=== PATIENT | male | born 1960 | race Caucasian/White ===

== ENCOUNTER 2018-01-25 10:21 | Emergency (ER) | payer BC ==
[2018-01-25 10:55] VITALS: BP 112/66
--- NOTE | 2018-01-25 11:36 | UC ---
General HPI - HPI Summary HPI Summary: 57 yo gentleman c/o R knee pain, was on his feet all day, toward the end of the day, his back "went out" (history of back problems). His weight pressed on R leg and turned knee. [place] a "pop" and pain that kept him awake all night. No known hx of R knee pain or injury. No new p/d/w. + swelling R knee. Mr. Ley is followed by pain management, last seen by Dr. Garcia 01/10/18. Rx for radiculopathy, back pain. Receives steroid injections, and takes lyrica and nucynta. - History of Current Complaint Chief Complaint: UCLowerExtremity Stated Complaint: KNEE INJURY Time Seen by Provider: 01/25/18 11:01 Hx Obtained From: Patient Pain Intensity: 10 - Allergy/Home Medications Allergies/Adverse Reactions: Allergies Allergy/AdvReac Type Severity Reaction Status Date / Time Adhesive Tape Allergy Severe Rash And Verified 01/25/18 10:56 Itching bee venom protein (honey bee) Allergy Severe Anaphylatic Verified 01/25/18 10:56 Shock Penicillins Allergy Mild Rash Verified 01/25/18 10:56 pseudoephedrine AdvReac Intermediate heart races Verified 01/25/18 10:56 [From [facility]] PMH/Surg Hx/FS Hx/Imm Hx - Additional Past Medical History Additional PMH: Lumbar radiculopathy, back pain. Previously Healthy: No - see hpi Other History Of: Anticoagulant Therapy - Surgical History Surgical History: Yes Surgery Procedure, Year, and Place: bilat fem-pop Bypass 2012 and 2014. B/L rotator cuff surgery. Left inguinal Hernia surgery 1986. EYES - FOR CROSSED EYED. TONSILECTOMY-. GALLBLADDER SURGERY 01/18/16 - Family History Known Family History: Positive: Hypertension - Social History Alcohol Use: Occasionally Substance Use Type: None Smoking Status (MU): Former Smoker Amount Used/How Often: 1 ppd or more Length of Time of Smoking/Using Tobacco: since age 17 When Did the Patient Quit Smoking/Using Tobacco: JUNE 2017 - Immunization History Most Recent Influenza Vaccination: NOT THIS SEASON Review of Systems Constitutional: Negative Skin: Negative Eyes: Negative ENT: Negative Respiratory: Negative Cardiovascular: Negative Gastrointestinal: Negative Genitourinary: Negative Motor: Other - see hpi Neurovascular: Other - see hpi. No changes from baseline back issues. Musculoskeletal: Arthralgia, Other: - see hpi Neurological: Other - see hpi Psychological: Negative Is Patient Immunocompromised?: No All Other Systems Reviewed And Are Negative: Yes Physical Exam Triage Information Reviewed: Yes Appearance: Well-Nourished - sitting up in chair. conversing easily and appropriately. NAD. Vital Signs: Initial Vital Signs Temp 95.4 F 01/25/18 10:51 Pulse 54 01/25/18 10:51 Resp 18 01/25/18 10:51 BP 112/66 01/25/18 10:51 Pulse Ox 96 01/25/18 10:51 Vital Signs Reviewed: Yes Eye Exam: Normal ENT Exam: Normal Neck exam: Other - no new issues reported. detailed exam not done. Respiratory Exam: Other - no tachypnea, no dyspnea. RR normal. Cardiovascular Exam: Normal - heart rate normal. good general color. Abdominal Exam: Normal - no c/o pain, sitting up. Musculoskeletal Exam: Other - R knee + swelling. + tenderness infrapatella region. Mild crepitus. Also Medial knee. + post knee swelling, mild ( consider bakers cyst? not cord-like). Foot warm to touch. Calves approx equal size. L knee nontender, without swelling. Neurological Exam: Normal - detailed neurologic exam not done. + distal sens LT present. Psychological Exam: Normal - conversing easily and appropriately. Skin Exam: Normal - not hot to touch. No visible or reported rash. Non- diaphoretic Course/Dx - Course Course Of Treatment: Reviewed Xray report with pt. (NAD, see [facility] for detailed report). Suspect internal injury. Consider meniscus. (?). Referral to orthopedic surgery. Questions as posed answered to the best of my ability. I reviewed ISTOP Ref # [id number]. Called pain clinic, Dr. Garcia not in office, Reva Roberts not available. I spoke with RN Rica, pain management. Analgesia ok, pt needs to notify pain clinic. - Differential Dx - Multi-Symptom Provider Diagnoses: Acute R knee injury,internal. Discharge - Discharge Plan Condition: Stable Disposition: HOME Prescriptions: HYDROcodone/ACETAMIN 5-325 MG* [[place] 5-325 TAB*] 1 tab PO Q8H PRN #12 tab MDD 3 PRN Reason: Pain Patient Education Materials: Swollen Knee Joint (ED), Meniscus Tear (ED) Referrals: Bernice Ahmadi PA [Primary Care Provider] - Humble Cruz MD [Medical Doctor] - As Soon As Possible Additional Instructions: I am suspicious of a meniscus tear. However, other internal knee issues could be problems too. Minimize pressure on knee. Follow up with your primary care physician, per routine. Please let your primary care physician know about your condition. Follow up with orthopedic surgeon, in the next week if possible. Seek medical attention for worse or new problems. Call the pain clinic tomorrow to let them know of your treatment plan.
--- NOTE | 2018-01-25 11:40 | RAD ---
Indication: Anterior RIGHT knee pain without proceeding injury. Comparison: None. Technique: RIGHT knee: AP, tunnel, lateral, sunrise views. Report: Negative for joint effusion, fracture, or malalignment. No significant arthropathic change evident. Innumerable vascular clips at the posterior medial distal thigh and knee. Unremarkable soft tissue contours. IMPRESSION: Negative radiographic exam of the RIGHT knee.
== END 2018-01-25 12:38 | disposition home or self-care (01) ==
LOC: UCEAST 10:21
DX: S89.91XA Unspecified injury of right lower leg, initial encounter (principal); X50.1XXA Overexertion from prolonged static or awkward postures, initial encounter; Y93.B1 Activity, exercise machines primarily for muscle strengthening; Y92.9 Unspecified place or not applicable; M54.16 Radiculopathy, lumbar region; Z91.030 Bee allergy status; Z88.0 Allergy status to penicillin; Z88.8 Allergy status to other drugs, medicaments and biological substances; Z91.048 Other nonmedicinal substance allergy status; Z79.01 Long term (current) use of anticoagulants; Z87.891 Personal history of nicotine dependence
CPT/HCPCS: 99213; G0463

== ENCOUNTER 2018-02-14 09:12 | Emergency (ER) | payer BC ==
--- OUTSIDE RECORDS SUMMARY | 2018-02-14 09:47 | XMS REPORT ---
:1960 External Reference #:[id number] [facility] Address [address] [address] Phone [phone] Care Team Providers Name Role Phone Bernice Ahmadi RPA Primary Care Physician Unavailable Payers Type Date Identification Numbers Payment Provider Subscriber Commercial Policy Number: [id number] [facility] Jt Ley PayID: [id number] [address] [place] [address] Problems Date Description Provider Status Onset: 01/26/2018 Low back pain Megan Jesus MD Active Onset: 01/26/2018 Lumbosacral spondylosis without Megan Jesus MD Active myelopathy Onset: 11/16/2017 Chronic obstructive lung disease Bernice Ahmadi RPA Active Onset: 01/21/2011 Cerebrovascular disease Active Onset: 11/10/2012 Carotid artery occlusion Active Onset: 11/10/2012 Pure hypercholesterolemia Active Onset: 11/10/2012 Benign essential hypertension Active Onset: 11/10/2012 Peripheral vascular disease Active Onset: 12/15/2012 Coronary arteriosclerosis Allan Moise MD Active Onset: 06/24/2016 Obstructive sleep apnea syndrome Bernice Ahmadi RPA Active Onset: 06/25/2016 Degenerative joint disease involving Bernice Ahmadi RPA Active multiple joints Onset: 10/22/2016 Diverticulitis Bernice Ahmadi RPA Active Onset: 12/07/2016 Hyperglycemia Bernice Ahmadi RPA Active Onset: 04/22/2017 Gastroesophageal reflux disease Bernice Ahmadi RPA Active Onset: 04/22/2017 Compression fracture Bernice Ahmadi RPA Active Onset: 04/22/2017 Alcoholism Bernice Ahmadi RPA Active Onset: 06/03/2017 Microscopic hematuria Bernice Ahmadi RPA Active Family History Date Family Member(s) Problem(s) Comments Father Diabetes Father Cancer Mother Diabetes Siblings 6 Social History Type Date Description Comments Marital Status Lives With Occupation [employer] 1 day a week Work Status Currently Working ETOH Use Occasionally consumes alcohol Smoking Patient is a former smoker Recreational Drug Use Denies Drug Use Daily Caffeine Consumes on average 3 cups of regular coffee per day Daily Caffeine Consumes on average 16oz of soda per day Exercise Type/Frequency Does not exercise Allergies, Adverse Reactions, Alerts Date Description Reaction Status Severity Comments 04/22/2017 Varenicline Suicidal ideation active 01/26/2018 Penicillin active 09/15/2016 Tape contact allergy active 02/02/2018 Tegaderm active when left on Medications Medication Date Status Form Strength Qnty SIG Indications Ordering Provider Lyrica Active Capsules 75mg 60caps 1 by Armando, 000 mouth Marleni, twice a [employer]- day Nucynta Active Tablets 50mg 60tabs 1 by Gissell Garcia, 000 mouth MD every 6 hours as needed Nadolol Active Tablets 40mg 90tabs 1 by Galdino, 000 mouth Bernice, every day RPA Rosuvastatin Active Tablets 40mg 90tabs take one Barton, Calcium 000 tablet Bernice, daily, RPA use generic Clopidogrel Active Tablets 75mg 1 by Galdino, Bisulfate 000 mouth Bernice, every day RPA Losartan Active Tablets 100-25mg take 1 Unknown Potassium/[place] 000 tablet by chlorothiazide mouth once daily Probiotic Active Capsules 1 by Unknown 000 mouth every day Hydrocodone-Leonel Hx Tablets 5-325mg 1 or 2 Unknown taminophen 000 - tabs by mouth 018 every 6-8 hours as needed for pain Medications Administered in Office Medication Date Status Form Strength Qnty SIG Indications Ordering Provider Celestone 3 mg Administered Injection Grabiel Estrella and 3mg 018 MD Olga Vital Signs Date Vital Result Comment 02/04/2018 Height 69 inches 5'9" Weight 225.00 lb Heart Rate 72 /min BP Systolic Sitting 118 mmHg BP Diastolic Sitting 72 mmHg Respiratory Rate 17 /min Pain Level 3 can go up to level 7 BMI (Body Mass Index) 33.2 kg/m2 02/02/2018 Height 69 inches 5'9" Weight 225.00 lb Heart Rate 78 /min BP Systolic Sitting 132 mmHg BP Diastolic Sitting 72 mmHg Respiratory Rate 16 /min Pain Level 6 BMI (Body Mass Index) 33.2 kg/m2 01/27/2018 Height 69 inches Weight 228.00 lb Heart Rate 50 /min BP Systolic 118 mmHg BP Diastolic 64 mmHg O2 % BldC Oximetry 94 % BMI (Body Mass Index) 33.7 kg/m2 01/26/2018 Height 69 inches 5'9" Weight 218.00 lb Heart Rate 82 /min BP Systolic Sitting 130 mmHg BP Diastolic Sitting 70 mmHg Pain Level 6 BMI (Body Mass Index) 32.2 kg/m2 10/15/2017 Height 69 inches Weight 218.00 lb Heart Rate 60 /min BP Systolic 110 mmHg BP Diastolic 60 mmHg O2 % BldC Oximetry 96 % BMI (Body Mass Index) 32.2 kg/m2 09/16/2017 Height 69 inches Weight 220.50 lb Heart Rate 46 /min BP Systolic 122 mmHg BP Diastolic 68 mmHg Respiratory Rate 22 /min Body Temperature 95.2 F O2 % BldC Oximetry 97 % BMI (Body Mass Index) 32.6 kg/m2 09/07/2017 Height 69 inches Weight 223.00 lb BP Systolic 122 mmHg BP Diastolic 62 mmHg O2 % BldC Oximetry 97 % BMI (Body Mass Index) 32.9 kg/m2 06/03/2017 Height 69 inches Weight 217.00 lb Heart Rate 48 /min BP Systolic 120 mmHg BP Diastolic 78 mmHg Respiratory Rate 18 /min Body Temperature 95.6 F O2 % BldC Oximetry 97 % BMI (Body Mass Index) 32.0 kg/m2 04/22/2017 Height 69 inches Weight 217.00 lb Heart Rate 64 /min BP Systolic 150 mmHg BP Diastolic 84 mmHg BMI (Body Mass Index) 32.0 kg/m2 12/07/2016 Height 69 inches Weight 213.50 lb Heart Rate 58 /min BP Systolic 148 mmHg BP Diastolic 78 mmHg Body Temperature 98.4 F O2 % BldC Oximetry 98 % BMI (Body Mass Index) 31.5 kg/m2 10/22/2016 Height 69 inches Weight 214.38 lb BP Systolic 136 mmHg BP Diastolic 78 mmHg Body Temperature 96.6 F BMI (Body Mass Index) 31.7 kg/m2 07/03/2016 Height 69 inches Weight 206.38 lb BP Systolic 134 mmHg BP Diastolic 74 mmHg BMI (Body Mass Index) 30.5 kg/m2 06/24/2016 Height 69 inches Weight 206.38 lb Heart Rate 66 /min BP Systolic 118 mmHg BP Diastolic 70 mmHg Body Temperature 97.4 F O2 % BldC Oximetry 96 % BMI (Body Mass Index) 30.5 kg/m2 01/22/2016 Height 69 inches Weight 216.50 lb Heart Rate 67 /min BP Systolic 137 mmHg BP Diastolic 85 mmHg Respiratory Rate 18 /min Body Temperature 98.4 F O2 % BldC Oximetry 96 % BMI (Body Mass Index) 32.0 kg/m2 08/08/2015 Weight 208.38 lb Heart Rate 61 /min BP Systolic 166 mmHg BP Diastolic 83 mmHg 01/18/2015 BP Systolic 160 mmHg BP Diastolic 90 mmHg 01/18/2015 Height 69 inches Weight 200.00 lb BP Systolic 160 mmHg BP Diastolic 90 mmHg BMI (Body Mass Index) 29.5 kg/m2 11/22/2013 Height 69 inches Weight 211.00 lb Heart Rate 73 /min BP Systolic 126 mmHg BP Diastolic 80 mmHg Respiratory Rate 16 /min BMI (Body Mass Index) 31.2 kg/m2 12/15/2012 Height 69 inches Weight 208.00 lb Heart Rate 80 /min BP Systolic 120 mmHg BP Diastolic 72 mmHg Respiratory Rate 16 /min BMI (Body Mass Index) 30.7 kg/m2 11/10/2012 Height 69 inches Weight 206.00 lb Heart Rate 60 /min BP Systolic 122 mmHg BP Diastolic 80 mmHg Respiratory Rate 16 /min BMI (Body Mass Index) 30.4 kg/m2 05/12/2012 Height 69 inches Weight 200.00 lb Heart Rate 80 /min BP Systolic 124 mmHg BP Diastolic 78 mmHg Respiratory Rate 18 /min 09/26/2009 Weight 193.00 lb Heart Rate 78 /min Respiratory Rate 16 /min 08/26/2009 Weight 193.00 lb Heart Rate 70 /min Respiratory Rate 16 /min Results Description No Information Procedures Date CPT Code Description Status 02/02/2018 58394 Inject/Drain Joint/Bursa Major Completed 02/24/2011 24739 Color Flow Doppler/Interp & Reprt Completed 02/24/2011 30116 Pulse Wave/Continuous-Interp.RPT Completed 02/24/2011 86844 ECHO Transthorasic Realtime 2D W Doppler & Color Completed Flow Hosp Encounters Type Date Location Provider CPT E/M Dx Office Visit 07/17/2008 [facility], [id number] [phone] 1:30p [facility] Office Visit 07/09/2008 [facility] Mcqueen, [id number] 846.0 2:15p [facility] Office Visit 06/29/2008 [facility] Mcqueen, [id number] 724.2 1:00p [facility] Estrella.Will Plan of Care Future Appointment(s):02/22/2018 9:00 am - Lizzie Barkley [facility] at [facility]/14/2018 1:30 pm - Megan Jesus MD at [facility]02/04/2018 - Grabiel Espinoza, [id number] Complex tear of medial mensc, current injury, r knee, subsFollow up:Follow up: ting for knee scope
--- OUTSIDE RECORDS SUMMARY | 2018-02-14 09:47 | XMS REPORT ---
:1960 External Reference #:[id number] Author Organization [facility] Address [address], [address] [place] [address] Phone [phone] Care Team Providers Name Role Phone Bernice Ahmadi RPAC Care Team Information Digital Hardware Design Engineer Unavailable Bernice Ahmadi RPAC Primary Care Physician Unavailable Payers Type Date Identification Numbers Payment Provider Subscriber Commercial Expires: Policy Number: [id number] [facility] Trudy Ley [address] [facility] PayID: [id number] [address] [place], [place] [address] [place] [address] Part B Policy Number: [id number] [facility] Halley Ley Group Name: [place] ([facility]) [address] PayID: [id number] [place] [address] Problems Date Description Provider Status Onset: 11/10/2012 Peripheral vascular disease GRABIEL Hamilton, EXCHANGE TELLER Active Note: lower ext, mesenteric a. Onset: 11/10/2012 Benign essential hypertension GRABIEL Hamilton, Active EXCHANGE TELLER Onset: 11/10/2012 Pure hypercholesterolemia GRABIEL Hamilton, Active EXCHANGE TELLER Onset: 11/10/2012 Carotid artery occlusion GRABIEL Hamilton, Active EXCHANGE TELLER Onset: 12/15/2012 Coronary arteriosclerosis Allan Moise M.D., [facility] Active Note: cath 2012 Onset: 01/21/2011 Cerebrovascular disease Active Note: CVA ~2004 Onset: 06/24/2016 Obstructive sleep apnea syndrome [facility] Onset: 06/25/2016 Degenerative joint disease involving TIM Segal Active multiple joints Note: entire spine Onset: 10/22/2016 Diverticulitis Bernice Ahmadi [facility] Active Note: admission 06/2016 Onset: 12/07/2016 Hyperglycemia Bernice Ahmadi [facility] Active Onset: 04/22/2017 Alcoholism Bernice Ahmadi [facility] Active Note: quit 02/2017 Onset: 04/22/2017 Compression fracture Bernice Ahmadi [facility] Active Note: T8 Onset: 04/22/2017 Gastroesophageal reflux disease Bernice Ahmadi [facility] Active Onset: 06/03/2017 Microscopic hematuria Bernice Ahmadi [facility] Active Onset: 11/16/2017 Chronic obstructive lung disease Bernice Ahmadi, [facility] Active Onset: 11/10/2012 Tobacco user Kaley Monterroso, Inactive MSN, EXCHANGE TELLER Inactive: 11/16/2017 Onset: 11/22/2013 Preoperative cardiovascular Allan Moise M.D., Resolved examination FACC Resolved: 06/18/2016 Onset: 11/10/2012 Chest pain Kaley Monterroso, MSN, EXCHANGE TELLER Resolved Resolved: 05/21/2017 Family History Date Family Member(s) Problem(s) Comments General Mostly unknown Father due to CAD () Father CAD : (age 72 Years) Father due to Lung Cancer Father Lung Cancer : (age 72 Years) Mother due to CVA Mother Stroke Social History Type Date Description Comments Marital Status Lives With Diet No Restrictions 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 Cigarette Use 06/28/2017 Quit ETOH Use Denies alcohol use Quit 02/2017 Smoking Patient is a former smoker Quit 06/2017 Daily Caffeine Consumes on average 4 cups of regular coffee per day Allergies, Adverse Reactions, Alerts Date Description Reaction Status Severity Comments 05/12/2012 Penicillin RASH active 09/15/2016 Tape contact allergy active 04/22/2017 Varenicline Suicidal ideation active 04/22/2017 Adhesives contact dermatitis active Medications Medication Date Status Form Strength Qnty SIG Indications Ordering Provider Ventolin HFA 01/27 Active Aerosol 108(90Bas 1-2 puffs Porfirio e) every 4-6 Marroquin, mcg/Act hours as M.D. needed Losartan 01/27 Active Tablets 50mg 90tabs 1 by mouth Porfirio every day Aydee Marroquin Dulera 01/27 Active Aerosol 200-5mcg/ sample 1-2 puffs J44.9 Act twice a Marroquin, day M.DSteven Lyrica 01/10 Active Capsules 75mg 1 capsule , bid. Nucynta 01/03 Active Tablets 50mg 1 tab , every 6 hrs as needed. Clopidogrel 11/29 Active Tablets 75mg 90tabs 1 by mouth Porfirio Bisulfate every day Aydee Marroquin Rosuvastatin 06/03 Active Tablets 40mg 90tabs 1 by mouth Calcium once daily Aydee Marroquin Omeprazole 01/[address] 20mg 90caps 1 by mouth every day Aydee Marroquin Probiotic 12/07 Active Capsules 1 qd Acid Aydee Marroquin Truetest Test 12/07 Active Strips 100unit use s one-four Marroquin, times a M.D. day prn Nadolol 03/05 Active Tablets 40mg 90tabs 1 by mouth every day Aydee Marroquin Hydrocodone-Ac Active Tablets 5-325mg [place] etaminophen /0000 MD Radha Incruse 11/16 Hx Aerosol 62.5mcg/I 30units 1 nh inhalation Marroquin, - every day M.D. 01/27 Duloxetine HCL 10/[address] 30mg 14caps 1 cap by Part mouth Marroquin, - every day M.D. 01/27 for 1 week then 1 cap by mouth every other day for 5 doses Order 08/13 Hx aqua therapy... Marroquin, - please M.D. 01/27 evaluate and treat, 2-3 times per week for 6 weeks...:: :...dx ::: m51.16, m79.604 Klaron 07/12 Hx Lotion 10% to skin , - Bri 01/27 MD Lloyd Nicotine 06/03 Hx Patches 21mg/24HR 28units 1 patch to F17.210 24HR chest or Marroquin, - upper arm M.D. 08/31 every day Lab/Pathology 06/03 Hx urine Porfirio cytology, Marroquin, - due to M.D. 10/12 microscop c hematuria. ..dx: r31.21 Prilosec OTC 04/[address] 20mg 90tabs take one tablet (or Marroquin, - capsule) M.D. 08/03 by mouth once a day Bupropion HCL 04/22 Hx Tablets ER 100mg 180tabs 1 tab by F17.210 Porfirio ER (SR) 12HR mouth Marroquin, - every M.D. 01/27 morning, increase to twice a day on quit date Prilosec OTC 01/[address] 20mg 90tabs take one tablet (or Marroquin, - capsule) M.D. 01/05 by mouth once a day Bactrim DS 12/07 Hx Tablets 800-160mg 20tabs 1 tab by J44.1 mouth Marroquin, twice a M.D. day Cheratussin ac 12/07 Hx Syrup 100-10mg/ 236ml 1-2 J44.1 Anette 5ML teaspoons MD Christiane by mouth every 4 hour as needed cough Glucometer 12/07 Hx Truetest One Or any covered Marroquin, machine M.D. Lancet Device 12/07 Hx Misc 1units for daily use Marroquin, - M.D. 10/12 Lancets Micro 12/07 Hx Misc Thin 33G 100unit for use Porfirio Thin 33G s three-four Marroquin, - times a M.D. Alcohol Prep 12/07 Hx Pads 70% 100unit for daily s use Marroquin, M.D. Neomycin/Polym 10/22 Hx Suspension 3.5-04701 10ml 3-4 drops H60.92 Darren Mcgregor yvenkat/Hydrocort /2016 - to [L] ear Alfonso DO isone (Otic) - canal four 12/07 times a day for 7-10 days Tobradex 12/08 Hx Ointment 0.3-0.1% 3.500gm small H00.012 amount OD Alfonso DO - three 10/22 times a day for 5-7 days Tobradex 10/22 Hx Suspension 0.3-0.1% 2.500ml 2 drops to H00.012 . affected Alfonso GEE - eye every 12/07 6 hours , for 5 days Gabapentin 09/07 Hx Capsules 300mg 1 by mouth [facility] Crestor 09/02 Hx Tablets 40mg 90tabs 1 by mouth once daily Mike Marroquin M.D. 06/03 Savella 07/03 Hx Tablets 25mg 60tabs 2 tabs by M79.7 mouth bid Alfonso GEE - 10/22 Cipro 06/17 Hx Tablets 500mg 1 by mouth twice a - day 06/26 Metronidazole 06/17 Hx Tablets 500mg 1 tab by Unknown mouth - three 06/28 times a day Rosuvastatin 06/14 Hx Tablets 40mg 1 tab by Fabiano Calcium mouth ADEOLA Richards - every day 09/02 Losartan 06/14 Hx Tablets 100-25mg 90tabs 1 by mouth Porfirio once daily oleg Marroquin M.D. e 01/27 Duloxetine HCL 06/[address] 60mg 90caps 1 by mouth Porfirio Part once daily Mike Marroquin M.D. 10/15 Plavix 05/15 Hx Tablets 75mg 90tabs 1 by mouth Porfirio every day Mike Marroquin M.D. 11/29 Pravastatin 11/22 Hx Tablets 40mg 90tabs 1 po qd Allan Yang Sodium Mike Moise M.D., [facility] 06/18 Isosorbide 11/10 Hx Tablets ER 30mg 30tabs take one 786.59 Kaley Mononitrate ER /2011 24HR tablet by Susi garcia Monterroso, daily. MSN, EXCHANGE TELLER Chantix 09/26 Hx Tablets 0.5mg 1tabs starter Allan Yang alverto Moise M.D., [facility] Chantix 09/26 Hx Tablets 1mg 1tabs continuati Allan Estrella. on packs Aydee Moise, [facility] Crestor 08/26 Hx Tablets 20mg 90tabs 1 po qd 272.4 Kaley Susi Monterroso, MSN, EXCHANGE TELLER Plavix Hx Tablets 75mg 90tabs 1 po qd Semel, MD Andrei Aspir-[address] 81mg 60tabs 1 po qd Allan M. Aydee Moise, [facility] Lovastatin Hx Tablets 20mg 90tabs 1 po qd Unknown Zocor Hx Tablets 20mg 30tabs 1 po qd - 11/22 Albuterol Hx Powder 2 puffs qd Unknown - 06/18 Lopressor Hx Tablets 25mg 180tabs 1 po bid Nitrostat Hx Tablets Sub 0.4mg 30tabs 1 tab sl q 5 min x3 chest pain Omeprazole Hx Capsules DR 20mg 30caps 1 po qd Lodine Hx Capsules 400mg 1 tab po twice a day Crestor Hx Tablets 40mg 30tabs 1 po qd Akshat, Daniela Estrella NP - 06/18 Zyban Hx Tablets ER 150mg 1 by mouth Akshat, 12HR twice a Daniela Estrella NP - day 06/18 Duloxetine HCL Hx Caps DR 60mg 1 by mouth Unknown / Part every day - 06/18 Proair HFA Hx Aerosol 108(90Bas 1-2 e) inhalation - mcg/Act s every 4 06/18 hours needed Omeprazole Hx Capsules DR 20mg 1 by mouth Unknown / every day - 06/18 Lisinopril Hx Tablets 20mg 1 by mouth Unknown / every day - 06/18 Benzonatate Hx Capsules 200mg one tablet Unknown / by mouth - every 8 / hours needed cough Nasonex Hx Suspension 50mcg/Act 2 sprays Unknown /0000 each - nostril 06/18 every Prilosec Hx Capsules DR 20mg 1 by mouth Unknown /0000 every day - 01/05 Tramadol HCL Hx Tablets 50mg 240tabs 1-2 Porfirio /0000 tablets by Marroquin, mouth M.D. every 6 hours as needed for pain ::: Reference #: [id number] Immunizations CPT Code Status Date Vaccine Reaction Lot # [id number] Given 09/07/2017 Influenza Virus Vaccine Quadrivalent Iiv4 [place] [id number] [id number] Given 09/14/1995 Influenza Virus Vaccine [id number] Given 09/30/1994 Influenza Virus Vaccine Vital Signs Date Vital Result Comment 01/27/2018 BP Systolic Sitting Right Arm 118 mmHg BP Diastolic Sitting Right Arm 64 mmHg Heart Rate 50 /min Height 69 inches 5'9" Weight 228.00 lb BMI (Body Mass Index) 33.7 kg/m2 BSA (Body Surface Area) 2.18 m2 Mark body weight in kilograms 73 O2 % BldC Oximetry 94 % ra 10/15/2017 BP Systolic Sitting Left Arm 110 mmHg BP Diastolic Sitting Left Arm 60 mmHg Heart Rate 60 /min Height 69 inches 5'9" Weight 218.00 lb BMI (Body Mass Index) 32.2 kg/m2 BSA (Body Surface Area) 2.14 m2 Mark body weight in kilograms 73 O2 % BldC Oximetry 96 % ra 09/16/2017 BP Systolic 122 mmHg BP Diastolic 68 mmHg Body Temperature 95.2 F 35.1 Heart Rate 46 /min Respiratory Rate 22 /min Height 69 inches 5'9" Weight 220.50 lb BMI (Body Mass Index) 32.6 kg/m2 BSA (Body Surface Area) 2.15 m2 Mark body weight in kilograms 73 O2 % BldC Oximetry 97 % 09/07/2017 BP Systolic 122 mmHg BP Diastolic 62 mmHg Height 69 inches 5'9" Weight 223.00 lb BMI (Body Mass Index) 32.9 kg/m2 BSA (Body Surface Area) 2.16 m2 Mark body weight in kilograms 73 O2 % BldC Oximetry 97 % ra 06/03/2017 BP Systolic Sitting Right Arm 120 mmHg BP Diastolic Sitting Right Arm 78 mmHg Body Temperature 95.6 F Heart Rate 48 /min (60 manual) Respiratory Rate 18 /min Height 69 inches 5'9" Weight 217.00 lb BMI (Body Mass Index) 32.0 kg/m2 BSA (Body Surface Area) 2.14 m2 Mark body weight in kilograms 73 O2 % BldC Oximetry 97 % ra 04/22/2017 BP Systolic 150 mmHg BP Diastolic 84 mmHg Heart Rate 64 /min Height 69 inches 5'9" Weight 217.00 lb BMI (Body Mass Index) 32.0 kg/m2 BSA (Body Surface Area) 2.14 m2 Mark body weight in kilograms 73 12/07/2016 BP Systolic Sitting Right Arm 148 mmHg BP Diastolic Sitting Right Arm 78 mmHg Body Temperature 98.4 F Heart Rate 58 /min Height 69 inches 5'9" Weight 213.50 lb BMI (Body Mass Index) 31.5 kg/m2 BSA (Body Surface Area) 2.12 m2 O2 % BldC Oximetry 98 % 10/22/2016 BP Systolic Sitting Right Arm 136 mmHg BP Diastolic Sitting Right Arm 78 mmHg Body Temperature 96.6 F Height 69 inches 5'9" Weight 214.38 lb BMI (Body Mass Index) 31.7 kg/m2 BSA (Body Surface Area) 2.13 m2 07/03/2016 BP Systolic Sitting Right Arm 134 mmHg BP Diastolic Sitting Right Arm 74 mmHg Height 69 inches 5'9" Weight 206.38 lb BMI (Body Mass Index) 30.5 kg/m2 BSA (Body Surface Area) 2.09 m2 06/24/2016 BP Systolic Sitting Right Arm 118 mmHg BP Diastolic Sitting Right Arm 70 mmHg Body Temperature 97.4 F Heart Rate 66 /min Height 69 inches 5'9" Weight 206.38 lb BMI (Body Mass Index) 30.5 kg/m2 BSA (Body Surface Area) 2.09 m2 O2 % BldC Oximetry 96 % 01/22/2016 BP Systolic 137 mmHg BP Diastolic 85 mmHg Body Temperature 98.4 F Heart Rate 67 /min Respiratory Rate 18 /min Height 69 inches 5'9" Weight 216.50 lb BMI (Body Mass Index) 32.0 kg/m2 BSA (Body Surface Area) 2.14 m2 O2 % BldC Oximetry 96 % 08/08/2015 BP Systolic 166 mmHg BP Diastolic 83 mmHg Heart Rate 61 /min Weight 208.38 lb 01/18/2015 BP Systolic 160 mmHg BP Diastolic 90 mmHg 01/18/2015 BP Systolic 160 mmHg BP Diastolic 90 mmHg Height 69 inches Weight 200.00 lb BMI (Body Mass Index) 29.5 kg/m2 11/22/2013 BP Systolic Sitting Right Arm 126 mmHg BP Diastolic Sitting Right Arm 80 mmHg Heart Rate 73 /min Respiratory Rate 16 /min Height 69 inches 5'9" Weight 211.00 lb BMI (Body Mass Index) 31.2 kg/m2 BSA (Body Surface Area) 2.11 m2 12/15/2012 BP Systolic Sitting Left Arm 120 mmHg BP Diastolic Sitting Left Arm 72 mmHg Heart Rate 80 /min Respiratory Rate 16 /min Height 69 inches 5'9" Weight 208.00 lb BMI (Body Mass Index) 30.7 kg/m2 11/10/2012 BP Systolic Sitting Right Arm 122 mmHg BP Diastolic Sitting Right Arm 80 mmHg Heart Rate 60 /min Respiratory Rate 16 /min Height 69 inches 5'9" Weight 206.00 lb BMI (Body Mass Index) 30.4 kg/m2 05/12/2012 BP Systolic 124 mmHg BP Diastolic 78 mmHg Heart Rate 80 /min Respiratory Rate 18 /min Height 69 inches 5'9" Weight 200.00 lb 09/26/2009 Heart Rate 78 /min Regular Respiratory Rate 16 /min Weight 193.00 lb 08/26/2009 Heart Rate 70 /min Regular Respiratory Rate 16 /min Weight 193.00 lb Results Test Date Test Result H/L Range Note Comprehensive Metabolic Panel 09/16/2017 Glucose 111 mg/dL High 74-106 1 BUN 14 mg/dL 7-18 1 Creatinine 1.0 mg/dL 0.6-1.3 1 Glom Filtration Rate, Estimate >60 mL/min >60 1 If >60 mL/min >60 1, 2 BUN/Creat 14.0 ratio 1 Sodium 140 mmol/L 136-145 1 Potassium 4.1 mmol/L 3.5-5.1 1 Chloride 107 mmol/L 98-107 1 Carbon Dioxide 26 mmol/L 21-32 1 Anion Gap 7 mEq/L Low 8-16 1 Calcium 9.9 mg/dL 8.5-10.1 1 Total Protein 8.3 g/dL High 6.4-8.2 1 Albumin 4.2 g/dL 3.4-5.0 1 Globulin 4.1 g/dL 1.9-4.3 1 Alb/Glob 1.0 ratio 1 Bilirubin,Total 0.4 mg/dL 0.2-1.0 1 Sgot/Ast 45 U/L High 15-37 1 SGPT/Alt 68 U/L 12-78 1 Alkaline Phosphatase 76 U/L 45-117 1 Ua Routine 09/16/2017 Urine Color YELLOW Yellow 1 Urine Clarity CLEAR Clear 1 Urine Glucose - Dipstick NEGATIVE mg/dL Negative 1 Urine Bilirubin - Dipstick NEGATIVE Negative 1 Urine Ketone NEGATIVE mg/dL Negative 1 Urine Specific [place] 1.025 1.010-1.030 1 Urine Blood SMALL Negative 1 Urine PH 5.5 Low 6.5-7.5 1 Urine Protein - Dipstick NEGATIVE mg/dL Negative 1 Urine Urobilinogen - Dipstick 0.2 E.U./dL 0.2-1.0 1 Urine Nitrite - Dipstick NEGATIVE Negative 1 Urine Leuk Esterase NEGATIVE Negative 1 Urine RBC NONE SEEN rbc/hpf 0-2 1 Urine WBC NONE SEEN wbc/hpf 0-7 1 Urine Epithelial Cells VERY FEW /lpf None Seen 1 Urine Bacteria VERY FEW None Seen 1 Source: URINE, CLEAN CAT <SEE NOTE> 1, 3 Glycohemoglobin A1c 04/22/2017 Glycohemoglobin (A1c) 6.4 % High 4.2-6.3 4 , 5 eAG 137 mg/dL 4 LDL Cholesterol Profile 04/22/2017 Cholesterol 127 mg/dL <200 4, 6 Triglycerides 145 mg/dL <150 4, 7 HDL Cholesterol 38 mg/dL Low >40 4, 8 LDL-Cholesterol 60 mg/dL < 100 4, 9 Liver Function Tests 04/22/2017 Total Protein 7.4 g/dL 6.4-8.2 4 Albumin 4.1 g/dL 3.4-5.0 4 Globulin 3.3 g/dL 1.9-4.3 4 Alb/Glob 1.2 ratio 4 Bilirubin,Total 0.4 mg/dL 0.2-1.0 4 Bilirubin,Direct 0.1 mg/dL 0.0-0.2 4 Bilirubin,Indirect 0.3 mg/dL 0.0-0.9 4 Sgot/Ast 33 U/L 15-37 4 SGPT/Alt 44 U/L 12-78 4 Alkaline Phosphatase 77 U/L 45-117 4 CBS W/Automated Diff 04/22/2017 White Blood Count 7.5 K/uL 3.4-10.5 4 Red Blood Count 4.36 M/uL 4.20-5.80 4 Hemoglobin 14.1 gm/dL 12.8-17.0 4 Hematocrit 41.5 % 38.0-48.0 4 Mean Cell Volume 95.2 fl 80.0-96.0 4 Mean Corpuscular HGB 32.3 pg 27.0-33.0 4 Mean Corpuscular HGB Conc 34.0 g/dL 31.7-36.0 4 Platelet Count 161 K/uL 150-400 4 Red Cell Distri Width SD 44.8 fl 36-51 4 Red Cell Distri Width %CV 13.0 % 11.6-15.8 4 Mean Platelet Volume 11.6 fL High 6.6-10.6 4 Neut% 43.4 % 33.0-73.0 4 Lymph % 40.8 % 20.0-42.0 4 Edwards % 9.9 % 0.0-10.0 4 Eo% 5.4 % 0.0-6.6 4 Bas% 0.5 % 0.0-1.1 4 Neut# 3.24 K/uL 1.8-7.0 4 Lymph # 3.04 K/uL 1.0-4.0 4 Edwards # 0.74 K/uL 0.0-0.8 4 Eos # 0.40 K/uL 0.0-0.5 4 Baso # 0.04 K/uL 0.0-0.1 4 Basic Metabolic Panel 04/22/2017 Glucose 107 mg/dL High 74-106 4 BUN 14 mg/dL 7-18 4 Creatinine 0.9 mg/dL 0.6-1.3 4 Glom Filtration Rate, Estimate >60 mL/min >60 4 If >60 mL/min >60 4, 10 BUN/Creat 15.5 ratio 4 Sodium 141 mmol/L 136-145 4 Potassium 4.2 mmol/L 3.5-5.1 4 Chloride 109 mmol/L High 98-107 4 Carbon Dioxide 30 mmol/L 21-32 4 Anion Gap 2 mEq/L Low 8-16 4 Calcium 9.0 mg/dL 8.5-10.1 4 Laboratory test finding 10/22/2016 Prostate Specific 0.73 ng/mL < 4.0 11, 12 Antigen Renal Function Panel 10/22/2016 Glucose 104 mg/dL 74-106 11 BUN 12 mg/dL 7-18 11 Creatinine 0.8 mg/dL 0.6-1.3 11 Glom Filtration Rate, Estimate >60 mL/min >60 11 If >60 mL/min >60 11, 13 BUN/Creat 15.0 ratio 11 Sodium 142 mmol/L 136-145 11 Potassium 4.5 mmol/L 3.5-5.1 11 Chloride 108 mmol/L High 98-107 11 Carbon Dioxide 28 mmol/L 21-32 11 Anion Gap 6 mEq/L Low 8-16 11 Calcium 9.1 mg/dL 8.5-10.1 11 Phosphorous 3.1 mg/dL 2.5-4.0 11 Liver Function Tests 10/22/2016 Total Protein 7.7 g/dL 6.4-8.2 11 Albumin 4.3 g/dL 3.4-5.0 11 Globulin 3.4 g/dL 1.9-4.3 11 Alb/Glob 1.3 ratio 11 Bilirubin,Total 0.5 mg/dL 0.2-1.0 11 Bilirubin,Direct 0.2 mg/dL 0.0-0.2 11 Bilirubin,Indirect 0.3 mg/dL 0.0-0.9 11 Sgot/Ast 34 U/L 15-37 11 SGPT/Alt 58 U/L 12-78 11 Alkaline Phosphatase 70 U/L 45-117 11 LDL Cholesterol Profile 10/22/2016 Cholesterol 158 mg/dL <200 11, 14 Triglycerides 74 mg/dL <150 11, 15 HDL Cholesterol 45 mg/dL >40 11, 16 LDL-Cholesterol 98 mg/dL < 100 11, 17 Glycohemoglobin A1c 10/22/2016 Glycohemoglobin (A1c) 6.5 % High 4.2-6.3 11, 18 eAG 140 mg/dL 11 Laboratory test 07/03/2016 Urine #1 <pending> finding Laboratory test 07/03/2016 Pathology Specimen (SEE NOTE) 19, 20 finding Lyme Igm (Reflex 06/24/2016 Lyme Disease <0.80 index 0.00-0.79 21 Western Blot) Antibody,QT,Igm Laboratory test 06/24/2016 Uric Acid 4.8 mg/dL 3.5-7.2 finding Calcium 9.7 mg/dL 8.5-10.1 Total Protein 7.5 g/dL 6.4-8.2 Albumin 4.0 g/dL 3.4-5.0 Globulin 3.5 g/dL 1.9-4.3 Alb/Glob 1.1 ratio Alkaline Phosphatase 87 U/L 45-117 Rheumatoid Factor Screen < 10.0 IU/mL 0.0-15.0 Antinuclear Antibodies, Ifa Negative . 22 Sedimentation Rate 12 mm/hr 0-20 Laboratory test finding 01/21/2016 Gallbladder See Note 23 Laboratory test finding 10/18/2015 Polyp Colon And/Or Rectum ta 24 Laboratory test finding 11/20/2012 D-Dimer, Quantitative 1.38 ug/mL High 25 Urinalysis W/Microscopic 05/12/2012 Appearance-Urine Clear Clear Bacteria-Urine Trace None Bilirubin-Ur Negative Negative Blood-Urine 1+ Negative Epith Cells-Ur Small None Esterase-Urine Negative Negative Glucose-Urine Negative Negative Ketones-Urine Negative Negative Nitrite Negative Negative PH-Urine 6.0 5-9 Protein-Urine Negative Negative RBC-Urine 0-1 0-2 Specific [place]-Ur 1.007 Low 1.010-1.030 Ua Color Yellow Yellow [id number] Negative Negative WBC-Urine None Seen 0-5 Urine Culture & Sensitivi 05/12/2012 M <See Note&gt ; 26 1 R31.21 2 Note: Persistent reduction for 3 months or more in an eGFR <60 mL/min/1.73 m2 defines CKD. Patients with eGFR values >/=60 mL/min/1.73 m2 may also have CKD if evidence of persistent proteinuria is present. The original MDRD equation for estimated GFR is not valid for patients less than 18 years of age. Additional information may be found at www.kdoqi.org. 3 URINE, CLEAN CATCH 4 R73.9 5 Elevated levels of HbA1c suggest the need for more aggressive treatment of glycemia. The [place] [employer] recommends that a primary goal of therapy should be a HbA1c of <7% and that physicians should re-evaluate the treatment regimen in patients with HbA1c values consistently >8%. 6 Reference Guidelines*: Desirable: ........... < 200 mg/dL Borderline High: ..... 200-239 mg/dL High: ................ >=240 mg/dL * The National Cholesterol Education Program (NCEP) 7 Reference Guidelines*: Normal: ............. < 150 mg/dL Borderline High: .... 150-199 mg/dL High: ............... 200-499 mg/dL Very High: .......... > 500 mg/dL * Source: National Cholesterol Education Program (NCEP) 8 Reference Guidelines*: Low HDL: ..... < 40 mg/dL Normal: ..... 40-60 mg/dL Desirable: ... > 60 mg/dL *The National Cholesterol Education Program(NCEP) 9 Reference Guidelines*: Optimal:........... <100 mg/dL Near Optimal....... 100-129 mg/dL Borderline High.... 130-159 mg/dL High............... 160-189 mg/dL Very High.......... >=190 mg/dL * Source: National Cholesterol Education Program (NCEP) 10 Note: Persistent reduction for 3 months or more in an eGFR <60 mL/min/1.73 m2 defines CKD. Patients with eGFR values >/=60 mL/min/1.73 m2 may also have CKD if evidence of persistent proteinuria is present. The original MDRD equation for estimated GFR is not valid for patients less than 18 years of age. Additional information may be found at www.kdoqi.org. 11 R73.9 E78.5 I10 R35.1 12 THIS ASSAY IS NOT INTENDED A CANCER SCREENING TEST The concentration of PSA in a given specimen, determined with assays from different manufacturers, can vary due to differences in assay methods and reagent specificity. Values obtained from different assay methods cannot be used interchangeably. Method: Siemens Prometheus Energyta Chemiluminescent immunoassay. 13 Note: Persistent reduction for 3 months or more in an eGFR <60 mL/min/1.73 m2 defines CKD. Patients with eGFR values >/=60 mL/min/1.73 m2 may also have CKD if evidence of persistent proteinuria is present. The original MDRD equation for estimated GFR is not valid for patients less than 18 years of age. Additional information may be found at www.kdoqi.org. 14 Reference Guidelines*: Desirable: ........... < 200 mg/dL Borderline High: ..... 200-239 mg/dL High: ................ >=240 mg/dL * The National Cholesterol Education Program (NCEP) 15 Reference Guidelines*: Normal: ............. < 150 mg/dL Borderline High: .... 150-199 mg/dL High: ............... 200-499 mg/dL Very High: .......... > 500 mg/dL * Source: National Cholesterol Education Program (NCEP) 16 Reference Guidelines*: Low HDL: ..... < 40 mg/dL Normal: ..... 40-60 mg/dL Desirable: ... > 60 mg/dL *The National Cholesterol Education Program(NCEP) 17 Reference Guidelines*: Optimal:........... <100 mg/dL Near Optimal....... 100-129 mg/dL Borderline High.... 130-159 mg/dL High............... 160-189 mg/dL Very High.......... >=190 mg/dL * Source: National Cholesterol Education Program (NCEP) 18 Elevated levels of HbA1c suggest the need for more aggressive treatment of glycemia. The [place] [employer] recommends that a primary goal of therapy should be a HbA1c of <7% and that physicians should re-evaluate the treatment regimen in patients with HbA1c values consistently >8%. 19 R31.2 20 URINE # 1 Hard copy of report to be sent by mail Report may be viewed in Clinical Review, or in PCI under Medical Record Forms 21 Negative <0.80 Equivocal 0.80 - 1.19 Positive >1.19 IgM levels may peak at 3-6 weeks post infection, then gradually decline. Performed at: [address] [id number] Air Intelligence Officer: Lou Quintana MD, Phone: [phone] 22 Negative <1:80 Borderline 1:80 Positive >1:80 23 OPERATION/PROCEDURE Lap. cholecystectomy DIAGNOSIS: "GALLBLADDER, CHOLECYSTECTOMY": - CHRONIC CHOLECYSTITIS. /clf [id number] GROSS The specimen is received in formalin in a properly labeled container with the patient's name and accession number designated, "[id number]". The specimen consists of a 6.7 x 3.9 x 2.6 cm. grossly recognizable gallbladder. The serosal surface is parish- purple and green. Upon opening a green viscous fluid is revealed. The mucosal wall is parish-pink and velvety. The gallbladder wall measures up to 0.2 cm. in greatest thickness. Farm Assistant sections, one cassette. /clf PRE OPERATIVE DIAGNOSIS Chronic cholecystitis. REVIEW CODE CODE: I Signed Electronically signed Meche ROSS MD [id number] 24 OPERATION/PROCEDURE Colonoscopy, polypectomy, gastroscopy DIAGNOSIS: PART 1: "COLON, TRANSVERSE, BIOPSY": - TUBULAR ADENOMA. - NO HIGH-GRADE DYSPLASIA OR MALIGNANCY. PART 2: "COLON, RECTUM, BIOPSY": - HYPERPLASTIC POLYP. PART 3: "COLON, RECTUM, BIOPSY": - HYPERPLASTIC POLYP. PART 4: "COLON, RECTUM, BIOPSY": - HYPERPLASTIC POLYP. [facility] 1010 GROSS The specimen is received in formalin in four properly labeled containers with the patient's name and accession number. Part one is designated, "TRANSVERSE COLON POLYP". The specimen consists of multiple pieces of soft parish, rubbery tissue with an aggregate measurement of 0.6 x 0.4 x 0.3 cm. Submitted entirely, one cassette. Part two is designated, "RECTAL POLYP #1". The specimen consists of a single piece of parish, soft rubbery tissue with a measurement of 0.4 x 0.2 x 0.2 cm. Submitted entirely, one cassette. Part three is designated, "RECTAL POLYP #2". The specimen consists of two pieces of parish, soft rubbery tissue with an aggregate measurement of 0.6 x 0.4 x 0.2 cm. Submitted entirely, one cassette. Part four is designated, "RECTAL POLYP #3". The specimen consists of a single piece of parish, soft rubbery tissue with a measurement of 0.4 x 0.4 x 0.2 cm. Submitted entirely, one cassette. /[facility] PRE OPERATIVE DIAGNOSIS Diverticulosis, ulcer REVIEW CODE CODE: I Signed Electronically signed Meche ROSS MD 1126 25 <=0.49 ug/mL - Low likelihood of DIC, DVT or Pulmonary Embolism >0.49 ug/mL - Additional testing should be done to rule out DIC, DVT, or Pulmonary embolism as clinically indicated. ([facility] has established a 97.89% negative predictive value for thrombotic disease when a cutoff value of 0.5 ug/mL is used.) 26 ------- RUN DATE: 05/14/12 [facility] NMI LIVE PAGE 1 RUN TIME: 1243 Specimen Inquiry RUN USER: INTERFACE ----- Name: TRUDY LEY Kenny Status: REG REF Re Age/Sex: 51/M Unit#: [id number] Location: [facility]. : 56 ----- SPEC #: [id number] MAEGAN: 05/12/12 STATUS: COMP REQ #: [id number] RECD: 05/12/[address]: Fauzia SINCLAIR,Daniela Sosa SOURCE: URINE ENTR: 05/12/[address]: SPDESC: ORDERED: URINE C S QUERIES: MEDENT REQUISITION # [id number] SPECIMEN DESCRIPTION: URINE, RANDOM ACT WKST: UR 05/14/12 #1 ----- Procedure Result Verified Site ----- > URINE CULTURE SENSITIVI Final 05/14/12-1243 ML FINAL: NO GROWTH DAY 2 (<1,000 CFU/mL) ----- ML - [facility] State Permit #[id number] [facility] [id number] ----- DEPARTMENT OF PATHOLOGY, [facility] [place], [place] [address] [facility] Permit #[id number] Maurice Abarca M.D. Director Teo Urrutia M.D. [employer] ----- Procedures Date CPT Code Description Status Comment 10/26/2017 66288 Bronchospasm Provocation Evaluation Completed Multi Spirometric Determinati 10/26/2017 18459 Spirometry Completed 06/08/2017 25 Disability Form Completed 07/03/2016 98193 Remove Impacted Cerumen Completed 01/21/2016 38650 EKG Interpretation And Report Only Completed 01/21/2016 36200 Laparoscopy; cholecystectomy Completed 10/18/2015 Colonoscopy Completed tubular adenoma 10/18/2015 12172 Colonoscopy With Biopsy Forceps Completed 10/18/2015 80994 EGD Completed 03/20/2015 54844 Myocardial Imaging Tomographic Completed Multiple Study At Rest Or Stress 03/20/2015 79965 Stress Test Interpre And Report Only Completed 03/20/2015 06678 Stress Test Physician Super Only Completed 03/20/2015 98531 Stress Test Physician Super Only Completed 11/22/2013 57272 EKG-Tracing And Report Completed 11/10/2012 83882 EKG-Tracing And Report Completed 08/30/2009 90110 Stress Test Interpre And Report Only Completed 08/29/2009 09562 Ejection Fraction Completed 08/29/2009 36104 Myocardial Wall Motion Completed 08/29/2009 41914 Cardiolite Stress/Rest Spect Completed 08/28/2009 34253 Transesophageal Echocardiogram Completed 08/26/2009 06397 EKG-Tracing And Report Completed 08/26/2009 76439 EKG-Tracing And Report Completed 12/09/2006 02541 EKG-Tracing And Report Completed 11/19/2006 21761 Remove Impacted Cerumen Completed 08/03/2005 71488 EKG-Tracing And Report Completed 01/11/2000 57209 EKG Interpretation And Report Only Completed 09/07/1996 44104 Destruct-Skin Tags/Lesions-Local Completed Anesthesia - First Lesion 02/10/1996 65911 EKG Interpretation And Report Only Completed 12/29/1993 21331 Remove Impacted Cerumen Completed Encounters Type Date Location Provider CPT E/M Dx Office Visit 10/15/2017 2:15p Primary Care Office Bernice Ahmadi, 72478 R53.83 RPAC R06.02 Office Visit 09/07/2017 10:15a Primary Care Office Bernice Ahmadi, 26479 R31.21 [facility] M51.16 M79.604 M62.830 Z23 Office Visit 06/03/2017 10:15a Primary Care Office Bernice Ahmadi, [facility] 27464 M54.5 I10 D48.5 F17.210 R31.21 Office Visit 04/22/2017 9:30a Primary Care Office Bernice Ahmadi, [facility] 24514 M54.5 R73.9 E78.5 F17.210 Z71.6 I73.9 Office Visit 12/07/2016 1:15p Primary Care Office Bernice Ahmadi, [facility] 57305 J44.1 R73.9 Office Visit 10/22/2016 10:15a Primary Care Office Bernice Ahmadi, [facility] 76009 I10 E78.5 R73.9 H00.012 H60.92 Office Visit 07/03/2016 9:30a Primary Care Office Bernice Ahmadi, 66310 M47.816 [facility] H61.23 M79.7 Office Visit 06/24/2016 9:45a Primary Care Office Bernice Ahmadi, 10740 K57.32 [facility] R31.2 M54.5 M25.50 Office Visit 12/18/2015 11:00a Surgical Office Nick Babb 85611 K81.1 Aydee Norton Office Visit 10/11/2015 3:11p [facility] [place] [address] R10.9 [facility] I10 Office Visit 08/08/2015 10:00a Surgical Office Nick Norton, 31936 K57.31 Aydee Z12.11 Office Visit 11/22/2013 11:40a Cardiology Office Allan Moise, 65922 V72.81 M.D., FACC 272.0 414.01 Office Visit 12/15/2012 2:00p Cardiology Office Allan EstrellaSteven Callahanjeane, 78129 786.59 M.D., FACC 401.1 272.0 414.01 Office Visit 11/10/2012 2:30p Cardiology Office Kaley Monterroso, 04686 786.59 MSN, EXCHANGE TELLER 443.9 401.1 272.0 305.1 433.11 Office Visit 09/26/2009 2:20p Cardiology Office Allan EstrellaSteven Mantracie, 12059 401.1 M.D., FACC 443.9 272.0 305.1 Office Visit 08/26/2009 3:00p Cardiology Office Kaley Uptonyder, 52706 786.50 MSN, EXCHANGE TELLER 433.11 443.9 272.4 305.1 Plan of Care Future Appointment(s):04/29/2018 10:00 am - TIM Segal at Primary Care Nrexvp3603/21/2018 8:45 am - Cherrie Muñoz M.D. at [facility]jt1201/27/2018 - Bernice Ahmadi RPACM25.561 Pain in right kneeComments:01/25/18 xray at [facility] was negative for effusion or bony changesTorn soft tissue?Follow up with orthopedicsReferral:Grabiel Espinoza MD, Surgery,[id number] Essential (primary ) hypertensionComments:Current medication(s): Losartan HCT 100/25mg daily, Nadolol 40mg daily Reviewed BP data, has declined since discontinuing cigarettesDecrease/change to >> Losartan 50 mg daily Continue NadololFollow up:3 deuqzoL97.9 Chronic obstructive pulmonary disease, unspecifiedNew Medication:Dulera 200-5 mcg/ActComments:Current treatment: Ventolin HFAAnoro Ellipta was not helpful.Trial, sample provided...
--- OUTSIDE RECORDS SUMMARY | 2018-02-14 09:47 | XMS REPORT ---
:1960 External Reference #:[id number] Author Organization [facility] Address [address] [address] Phone [phone] Care Team Providers Name Role Phone Bernice Ahmadi RPA Primary Care Physician Unavailable Payers Type Date Identification Numbers Payment Provider Subscriber Commercial Policy Number: [id number] [facility] Jt Ley PayID: [id number] [address] [place] [address] Problems Date Description Provider Status Onset: 01/26/2018 Low back pain Kellysiljacqui Jesus MD Active Onset: 01/26/2018 Lumbosacral spondylosis without Megan Jesus MD Active myelopathy Family History Date Family Member(s) Problem(s) Comments Father Diabetes Father Cancer Mother Diabetes Siblings 6 Social History Type Date Description Comments Marital Status Lives With Occupation [employer] Work Status Currently Working ETOH Use Occasionally consumes alcohol Smoking Patient is a former smoker Recreational Drug Use Denies Drug Use Daily Caffeine Consumes on average 3 cups of regular coffee per day Daily Caffeine Consumes on average 16oz of soda per day Exercise Type/Frequency Does not exercise Allergies, Adverse Reactions, Alerts Date Description Reaction Status Severity Comments 01/26/2018 Penicillin active Medications Medication Date Status Form Strength Qnty SIG Indications Ordering Provider Hydrocodone-Leonel Active Tablets 5-325mg 1 or 2 Unknown taminophen 000 tabs by mouth every 6-8 hours as needed for pain Lyrica Active Capsules 75mg 60caps 1 by Armando, 000 mouth Marleni, twice a FIRST BEATER-BC day Nucynta Active Tablets 50mg 60tabs 1 by Gissell Garcia, 000 mouth every 6 hours as needed Nadolol Active Tablets 40mg 90tabs 1 by Galdino, 000 mouth Bernice, every day RPA Rosuvastatin Active Tablets 40mg 90tabs take one [place], Calcium 000 tablet Bernice, daily, RPA use generic Clopidogrel Active Tablets 75mg 1 by [place], Bisulfate 000 mouth Bernice, every day RPA Losartan Active Tablets 100-25mg take 1 Unknown Potassium/[place] 000 tablet by chlorothiazide mouth once daily Probiotic Active Capsules 1 by Unknown 000 mouth every day Vital Signs Date Vital Result Comment 01/26/2018 Height 69 inches 5'9" Weight 218.00 lb Heart Rate 82 /min BP Systolic Sitting 130 mmHg BP Diastolic Sitting 70 mmHg Pain Level 6 BMI (Body Mass Index) 32.2 kg/m2 Results Description No Information Procedures Date CPT Code Description Status 02/24/2011 23575 Color Flow Doppler/Interp & Reprt Completed 02/24/2011 79491 Pulse Wave/Continuous-Interp.RPT Completed 02/24/2011 63477 ECHO Transthorasic Realtime 2D W Doppler & Color Completed Flow Hosp Encounters Type Date Location Provider CPT E/M Dx Office Visit 07/17/2008 [facility], [address]85[address] 846.0 1:30p [facility] Office Visit 07/09/2008 [facility] Mcqueen, 95872 846.0 2:15p [facility] Office Visit 06/29/2008 [facility] Mcqueen, 31319 724.2 1:00p [facility] Plan of Care Future Appointment(s):02/14/2018 1:30 pm - Megan [facility] MD at [facility]01/26/2018 - Megan Jesus MDM47.26 Other spondylosis with radiculopathy, lumbar regionNew Xrays:MRI Lumbar Spine W/OSP Lumbar Ap//Lat 2-3 ViewsFollow up:RV in 3 fvpmtY59.5 Low back pain
[2018-02-14 09:57] VITALS: BP 153/72
--- NOTE | 2018-02-14 10:11 | UC ---
Respiratory Complaint HPI - HPI Summary HPI Summary: COUGH X 4 DAY COUGH IS DRY, HARSH , NO FEVER, NO CHILLS, + NASAL CONGESTION , PND + WHEEZING, SOB - History of Current Complaint Chief Complaint: UCRespiratory Stated Complaint: UPPER RESPRITORY Time Seen by Provider: 02/14/18 09:53 Hx Obtained From: Patient Onset/Duration: Gradual Onset, Lasting Days - 4, Still Present Timing: Constant Severity Initially: Moderate Severity Currently: Moderate Pain Intensity: 4 Character: Cough: Nonproductive Aggravating Factors: Exertion, Deep Breaths Alleviating Factors: Nothing Associated Signs And Symptoms: Positive: Dyspnea, Pleuritic Chest Pain, Wheezing , URI, Nasal Congestion. Negative: Fever, Chills, Hemoptysis, Dizziness, Calf Pain, Calf Swelling, Edema - Allergies/Home Medications Allergies/Adverse Reactions: Allergies Allergy/AdvReac Type Severity Reaction Status Date / Time Adhesive Tape Allergy Severe Rash And Verified 02/14/18 09:45 Itching bee venom protein (honey bee) Allergy Severe Anaphylatic Verified 02/14/18 09:45 Shock Penicillins Allergy Mild Rash Verified 02/14/18 09:45 pseudoephedrine AdvReac Intermediate heart races Verified 02/14/18 09:45 [From [facility]] Home Medications: Home Medications Ibuprofen TAB* [Motrin TAB* 400 MG] 400 mg PO Q6HR PRN 02/14/18 [History Confirmed 02/14/18] Mometasone/Formoter 200/5 MDI* [Dulera 200/5 MDI*] 2 puff INH BID 02/14/18 [ History Confirmed 02/14/18] PMH/Surg Hx/FS Hx/Imm Hx Endocrine History: Diabetes Cardiovascular History: Hypertension Respiratory History: COPD, Asthma Other History Of: Anticoagulant Therapy - Surgical History Surgical History: Yes Surgery Procedure, Year, and Place: bilat fem-pop Bypass 2012 and 2014; 1.5 ONLY, PROPATEN GRAFT LEFT LEG. B/L rotator cuff surgery;. Left inguinal Hernia surgery 1986. EYES - FOR CROSSED EYED. TONSILECTOMY-. GALLBLADDER SURGERY 01/18/16 - Family History Known Family History: Positive: Hypertension - Social History Alcohol Use: Occasionally Substance Use Type: None Smoking Status (MU): Former Smoker Amount Used/How Often: 1 ppd or more Length of Time of Smoking/Using Tobacco: since age 17 When Did the Patient Quit Smoking/Using Tobacco: JUNE 2017 - Immunization History Most Recent Influenza Vaccination: NOT THIS SEASON Review of Systems Constitutional: Negative Skin: Negative Eyes: Negative ENT: Nasal Discharge Respiratory: Shortness Of Breath, Cough Cardiovascular: Negative Gastrointestinal: Negative Is Patient Immunocompromised?: No All Other Systems Reviewed And Are Negative: Yes Physical Exam Triage Information Reviewed: Yes Appearance: Well-Appearing, No Pain Distress, Well-Nourished Vital Signs: Initial Vital Signs Temp 96.7 F 02/14/18 09:50 Pulse 64 02/14/18 09:50 Resp 22 02/14/18 09:50 BP 153/72 02/14/18 09:50 Pulse Ox 100 02/14/18 09:50 Vital Signs Reviewed: Yes Eye Exam: Normal Eyes: Positive: Conjunctiva Clear ENT: Positive: Normal ENT inspection, Hearing grossly normal, Pharynx normal Neck: Positive: Supple, Nontender, No Lymphadenopathy Respiratory: Positive: Chest non-tender, Lungs clear, Normal breath sounds Cardiovascular: Positive: RRR, No Murmur, Pulses Normal Abdominal Exam: Normal Skin Exam: Normal UC Diagnostic Evaluation - Laboratory O2 Sat by Pulse Oximetry: 100 Respiratory Course/Dx - Course Course Of Treatment: ELEVATED BP: CONT. WITH YOUR CURRENT MEDS. FOLLOW UP WITH YOUR PCP IN ONE WEEK - Differential Dx/Diagnosis Provider Diagnoses: BRONCHITIS. ELEVATED BP Discharge - Sign-Out/Discharge Documenting (check all that apply): Discharge - Discharge Plan Condition: Stable Disposition: HOME Prescriptions: Albuterol HFA INHALER* [Ventolin HFA Inhaler*] 2 puff INH Q6H PRN #1 mdi PRN Reason: Wheezing Benzonatate CAP* [Tessalon 100 MG CAP*] 100 mg PO TID PRN #21 cap PRN Reason: Cough Patient Education Materials: Acute Bronchitis (ED) Referrals: Bernice Ahmadi PA [Primary Care Provider] - 7 Days - Billing Disposition and Condition Condition: STABLE Disposition: HOME
== END 2018-02-14 10:28 | disposition home or self-care (01) ==
LOC: UCCORT 09:12
DX: J40 Bronchitis, not specified as acute or chronic (principal); R03.0 Elevated blood-pressure reading, without diagnosis of hypertension; Z91.030 Bee allergy status; Z88.0 Allergy status to penicillin; Z88.8 Allergy status to other drugs, medicaments and biological substances; Z91.048 Other nonmedicinal substance allergy status; E11.9 Type 2 diabetes mellitus without complications; J44.9 Chronic obstructive pulmonary disease, unspecified; Z87.891 Personal history of nicotine dependence
CPT/HCPCS: 99212; G0463

== ENCOUNTER 2018-03-09 07:55 | Day surgery (SDC) | payer BC ==
--- NOTE | 2018-02-25 15:38 | HP ---
PREOPERATIVE HISTORY AND PHYSICAL: DATE OF ADMISSION: 03/09/18 DATE OF SURGERY: 03/09/18 DATE OF OFFICE VISIT: 02/22/18 ATTENDING SURGEON: Lizzie Barkley MD * (DICTATED BY ADEOLA MCINTOSH) PROCEDURE: Right knee arthroscopy, partial meniscectomy. HISTORY OF PRESENT ILLNESS: Jt is a 57-year-old male who presents to the clinic for right knee pain after an injury 4 weeks ago when he stood up from the couch. He heard a pop in his back and felt pain down his leg which caused him to twist his knee. He also felt a pop in his knee. He had swelling the next morning and difficulty weightbearing, so he was seen in [facility] where x-rays were performed and found to be negative. Since that time he has had continued pain in the medial aspect of his knee. He rates it a 5/10. He ambulates with a limp and is needing a cane for assistance with ambulation. He also reports an intermittent click. He was seen by Dr. Cardoso who gave him an injection which did help decrease the pain but did not take it away. He states the pain is made worse with walking and with going upstairs. He must take stairs one foot at a time. He is unable to squat due to the pain. He does have numbness and tingling due to his chronic back pain. He takes Lyrica and Nucynta for his back and he is not taking anything extra for the knee. He reports intermittent catching of the knee. He does have a history of bypass in both legs, but denies any knee surgeries. He denies history of DVT or PE. He is a prior smoker, but quit 40 years ago. He is borderline diabetic. He denies any neuropathy. He denies chest pain, shortness of breath, fever, chills , and is doing well otherwise. He is a former smoker and quit several months ago. PAST MEDICAL HISTORY: 1. Hypertension. 2. COPD. 3. High cholesterol. 4. Arthritis. 5. Diverticulitis. 6. History of stroke. 7. Depression. 8. Anxiety. 9. Alcohol abuse. PAST SURGICAL HISTORY: 1. Inguinal hernia. 2. Bilateral rotator cuff. 3. Fem-pop bypass bilaterally. 4. Cholecystectomy. 5. Eye surgery. The patient denies any prior complications with anesthesia, but he does state that sodium pentothal causes severe vomiting. MEDICATIONS: 1. Lyrica 75 mg one by mouth twice a day. 2. Nucynta 50 mg one by mouth every 6 hours as needed. 3. Nadolol 40 mg one by mouth everyday. 4. Rosuvastatin calcium 40 mg one by mouth daily. 5. Clopidogrel bisulfate 75 mg one by mouth everyday. 6. Losartan potassium/hydrochlorothiazide 100/25 mg take one by mouth once daily. 7. Probiotic one by mouth everyday. ALLERGIES: 1. VARENICLINE. 2. PENICILLIN. 3. TAPE. 4. TEGADERM. FAMILY HISTORY: Positive for diabetes, heart disease, and cancer. Denies family history of DVT or PE. SOCIAL HISTORY: He lives with his spouse. He is disabled. He is a former smoker. He reports occasional alcohol consumption. He is right hand dominant. REVIEW OF SYSTEMS: A 14-point review of systems was reviewed with the patient. Positive for runny nose due to bronchitis, shortness of breath and cough, chronic back pain, weight gain, fatigue, easy bleeding due to the Plavix. Otherwise negative. Denies chest pain. Positive for shortness of breath due to COPD. Denies history of bleeding disorder. Denies personal history of DVT or PE. PHYSICAL EXAMINATION GENERAL: A 57-year-old well-developed, well-nourished male, in no acute distress, alert and oriented x3. Appropriate mood and affect. Appropriate balance and coordination of the lower extremity. Antalgic gait apparent on the right side. VITAL SIGNS: Height 69, weight 225. Blood pressure 130/70, respiratory rate 18 , temperature 97.5. BMI 33.2. HEENT: Normocephalic, atraumatic. PERRLA. Throat clear. NECK: Supple. PULMONARY: Lungs clear to auscultation bilaterally. No wheezing, rhonchi, or rales. CARDIO: Regular rate and rhythm. S1 and S2. No murmurs, gallops, or rubs. No edema. ABDOMEN: Positive bowel sounds, soft, nontender. MUSCULOSKELETAL: Right lower extremity, skin is intact. No evidence of erythema. Mild effusion. Tenderness over the medial jointline and patellar tendon. Stable varus and valgus stress. Range of motion 0 to 120. Stable [place]. Negative posterior drawer. Positive [place]. +2 PT pulse. Sensation is intact to light touch distally. Left lower extremity, skin is intact. No evidence of erythema. Nontender to palpation. Full strength with range of motion. Neurovascularly intact. NEUROLOGIC: Alert and oriented x3. Cranial nerves grossly intact. Sensation is intact to light touch. STUDIES: Multiple view x-rays and MRI of the right knee reveal a horizontal tear of the posterior horn of the medial meniscus with extrusion into the joint , as well as patellar tendinosis. IMPRESSION: Right knee medial meniscus tear. PLAN: Mr. Ley is a 57-year-old male who presents to the clinic for right knee pain due to a medial meniscus tear. He has failed conservative measures to include injections, therefore agreed to undergo a right knee arthroscopy with partial meniscectomy with Dr. Barkley on 03/09/18. Dr. Barkley discussed conservative versus surgical treatment. The patient has agreed to undergo surgery. Risks of surgery to include anesthesia, risk of blood clot, stiffness , infection, bleeding, injury to blood vessels, nerves and surrounding structures, scarring and persistent pain were discussed with the patient. He will require medical clearance by his PCP and also his vascular surgeon prior to surgery and he was told to ask his vascular surgeon when to stop Plavix prior to surgery and when to restart. Percocet will be used for postop pain management. He will follow up 10 to 14 days postoperative for followup and suture removal. DAEOLA MCINTOSH [id number]/[facility] #: [id number] NIA
[~2018-03-09 07:55] MED LIST: Buffered Lidocaine 0.9% SYRIN* 5 ML/SYR SYRINGE INTRADERM ONE; Dexamethasone IV* 4 MG/ML 1 ML (4 MG) IV SLOW PU ONE
[2018-03-09] MEDS ORDERED: Buffered Lidocaine 0.9% SYRIN* 5 ML/SYR SYRINGE ONE (08:20)
[2018-03-09] MEDS ORDERED: Clindamycin 900 MG IVPREMIX(* 900 MG/50 ML SDV IV ONE (08:20)
[2018-03-09] MEDS ORDERED: Dexamethasone IV* 4 MG/ML 1 ML (4 MG) ONE (08:20)
[2018-03-09] MEDS ORDERED: DiMENhydriNATE IV* 50 MG/ML VIAL IV PUSH PRN (09:46)
[2018-03-09] MEDS ORDERED: fentaNYL* 50 MCG/ML 2 ML VIAL (100 MCG VIAL) IV PRN (09:46)
[2018-03-09] MEDS ORDERED: Ondansetron INJ* 2 MG/ML VIAL IV PRN (09:46)
[2018-03-09] MEDS ORDERED: Naloxone* 0.4 MG/ML 1 ML VIAL IV PRN (09:46)
[2018-03-09] MEDS ORDERED: fentaNYL* 50 MCG/ML 2 ML VIAL (100 MCG VIAL) ONE (09:50)
[2018-03-09] MEDS ORDERED: Chloroprocaine 2%* 20 ML VIAL ONE (09:50)
[2018-03-09] MEDS ORDERED: Ondansetron INJ* 2 MG/ML VIAL ONE (09:50)
[2018-03-09] MEDS ORDERED: Midazolam* 1 MG/ML 5 ML VIAL (5 MG) ONE (09:50)
[2018-03-09] MEDS ORDERED: Lidocaine 1% MPF wEPI 200,000* 30 ML SDV ONE (09:59)
[2018-03-09] MEDS ORDERED: Bupivacaine 0.25% SDV* 30 ML ONE (09:59)
[2018-03-09] MEDS ORDERED: oxyCODONE/Acetamin 5/325 MG* TAB ONE ×2 (12:32→13:06)
[2018-03-09] MEDS: oxyCODONE/Acetamin 5/325 MG* TAB PO PRN ×2 (12:33→13:06)
[2018-03-09 13:40] VITALS: BP 149/79
--- NOTE | 2018-03-09 13:41 | OP ---
OPERATIVE REPORT: DATE OF OPERATION: 03/09/18 - SDS DATE OF : 56 SURGEON: Lizzie Barkley MD WIRE TRANSFER CLERK: None available. ANESTHESIOLOGIST: Dr. Pierce. ANESTHESIA: Spinal, local MAC. PRE-OP DIAGNOSIS: Right knee medial meniscus tear. POST-OP DIAGNOSIS: Medial and lateral meniscus tears with some medial compartment arthritis. OPERATIVE PROCEDURE: Right knee arthroscopy with partial medial meniscectomy, partial lateral meniscectomy, and chondroplasty of medial femoral condyle. COMPLICATIONS: None. ESTIMATED BLOOD LOSS: Minimal. IMPLANTS: None. TOURNIQUET TIME: Zero minutes. INDICATIONS: Jt Ley is a 57-year-old gentleman who has had persistent catching and locking symptoms of his right knee after he stood from a couch. He has failed conservative management and he has elected to proceed with right knee arthroscopy with meniscus surgery. Risks and benefits of surgery were discussed at length to include but not limited to bleeding, infection, damage to nerves, vessels, surrounding structures, wound nonhealing, persistent pain, need for further surgery, scaring, stiffness, incomplete release of symptoms, and risks of anesthesia. DESCRIPTION OF PROCEDURE: The patient was greeted in the preoperative area by the attending surgeon. Correct extremity was marked, consent was confirmed. The patient was brought back to the operating room suite where he was placed in a supine position on the operating room table. He then underwent spinal anesthesia after which he was appropriately positioned on the bed. Unsterile tourniquet was placed high in the proximal thigh, the lateral post was positioned. The right leg was prepped and draped in the usual sterile fashion beginning with chlorhexidine soap, scrub, and alcohol wipe, and a final prep with ChloraPrep. After appropriate surgical pause indicating site, side, procedure, and administration of antibiotics, the knee was intra-articularly injected with 1% lidocaine with epi. The anterolateral portal was made sharply with an 11 blade. Scope was introduced into the joint, joint was examined. There were grade 0 changes to 1 changes at the patellofemoral joint. The medial and lateral gutters were intact. The ligamentum was still present in the notch and the ACL and PCL were intact. The anteromedial portal was made in an outside in fashion. Shaver was used to debride back the ligamentum. With the knee in 90 degrees, the meniscus tear was evident. A flap from the root was trapped in the notch. This was debrided back with jules and biters. There was unstable flaps of the medial meniscus that were debrided back using jules and biters. The quality of the tissue was degenerative. Shaver was used to debride this back. There were grade 2 changes of the medial femoral condyle with unstable flaps, which were also debrided back using a shaver. Medial plateau also had grade 2 changes which was debrided back. Once this was completed, the knee was placed in a [id number] position. The lateral meniscus was identified and there was mild fraying. This was debrided back using the shaver. There was fissuring and grade 1 to 2 changes at the lateral plateau. The lateral femoral condyle had grade 0 to 1 changes. The patellofemoral joint hand some mild fraying, which was debrided back. Once this was complete, final images were obtained. Once the adequate meniscectomy was done, the knee was thoroughly lavaged to remove any loose bodies. The wounds were copiously irrigated with sterile saline and closed with 3-0 nylon in an interrupted fashion. Sterile dressing were applied. The knee was intra-articularly injected with 0.25% Marcaine plain. Sterile dressings and Cryo/cuff was applied. He was awoken from anesthesia and transferred back in stable condition. POSTOPERATIVE PLAN: He will be on a walker for 3 to 5 days. He will be allowed to flex and extend his knee. He will be discharged on pain medication. DVT prophylaxis considered, but deferred due to no previous personal or family history. I will see the patient back in about 14 days. [id number]/[facility] #: [id number] [facility] CENTERThad
== END 2018-03-09 13:59 | disposition home or self-care (01) ==
LOC: OR 07:55
PROVIDERS: ATTEND Orthopaedic Surgery
DX: S83.241A Other tear of medial meniscus, current injury, right knee, initial encounter (principal); S83.281A Other tear of lateral meniscus, current injury, right knee, initial encounter; X50.0XXA Overexertion from strenuous movement or load, initial encounter; Y92.9 Unspecified place or not applicable; Z87.891 Personal history of nicotine dependence; E11.9 Type 2 diabetes mellitus without complications; J44.9 Chronic obstructive pulmonary disease, unspecified; I10 Essential (primary) hypertension; I25.10 Atherosclerotic heart disease of native coronary artery without angina pectoris; M17.11 Unilateral primary osteoarthritis, right knee
CPT/HCPCS: A9270-GY; J1100; J2001; J2250; J2400; J2405; J3010

== ENCOUNTER 2019-10-01 21:18 | Observation (INO) | payer BC ==
[2019-10-01] MEDS ORDERED: NS 0.9% 1000 ML** 1,000 ML IV ONE ×2 (21:29→22:20)
[2019-10-01] MEDS ORDERED: Ondansetron INJ* 2 MG/ML VIAL IV ONE (21:29)
--- NOTE | 2019-10-01 21:29 | ED ---
Nausea/Vomiting/Diarrhea HPI - HPI Summary HPI Summary: Patient complains of intermittent nausea and cough 3 days since flying back from [place] with new onset vomiting and diarrhea and lightheadedness/dizziness starting today after eating pizza at 8 PM tonight. Defines dizziness as " feeling like I'm going to pass out". Denies room spinning, speech change, favce droop, new unilateral weakness, vision change, fever, sore throat, COLE, CP , SOB, abdominal pain, change in urine. Medical history is COPD, HTN, DM, HDL, CAD, CVA. Patient states she has not been eating much over the past couple days , also states he has not been compliant with hypertension medications over the past 2 days due to nausea. Patient also states his baseline heart rate is between 40 and 60. Denies EtOH or recreational drug use. Patient is on Plavix. 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 Denies prior history of dizziness. Per , unsteady gait at baseline. - History of Current Complaint Chief Complaint: EDNauseaVomitDiarrh Stated Complaint: NAUSEA/VOMITING PER EMS Time Seen by Provider: 10/01/19 21:27 Hx Obtained From: Patient, Family/Horticulture Instructor Onset/Duration: Gradual Onset, Lasting Days Severity Currently: None Pain Intensity: 0 Pain Scale Used: 0-10 Numeric Aggravating Factor(s): Nothing Alleviating Factor(s): Nothing Vomiting Frequency: Every 15-60 minutes Vomiting Characteristics: Nonbilious Diarrhea Presence: Yes Diarrhea Characteristics: Watery - Allergies/Home Medications Allergies/Adverse Reactions: Allergies Allergy/AdvReac Type Severity Reaction Status Date / Time Adhesive Tape Allergy Severe Rash And Verified 10/01/19 21:30 Itching bee venom protein (honey bee) Allergy Severe Anaphylatic Verified 10/01/19 21:30 Shock Penicillins Allergy Mild Rash Verified 10/01/19 21:30 varenicline [From Chantix] Allergy SUICIDAL Verified 10/01/19 21:30 TENDENCIES pseudoephedrine AdvReac Intermediate heart races Verified 10/01/19 21:30 [From Sudafed] Home Medications: Home Medications Bupropion XL* [Wellbutrin XL *] 150 mg PO DAILY 10/01/19 [History Confirmed ] Dicyclomine CAP* [Bentyl CAP*] 10 mg PO DAILY 10/01/19 [History Confirmed ] Ropinirole TAB* [Requip TAB*] 0.5 mg PO DAILY 10/01/19 [History Confirmed ] Tapentadol HCl [Nucynta] 50 mg PO TID 10/01/19 [History Confirmed 10/01/19] PMH/Surg Hx/FS Hx/Imm Hx Endocrine/Hematology History: Reports: Hx Anticoagulant Therapy, Hx Diabetes - ON MEDS Denies: Hx Thyroid Disease Cardiovascular History: Reports: Hx Coronary Artery Disease - RIGHT CAROTID OCCLUDED/ LEFT CAROTID 50% OCCULDED, Hx Hypertension - ON MEDICATION FOR, Hx Peripheral Vascular Disease, Other Cardiovascular Problems/Disorders - BILATERAL LEG BYPASS SURGERIES Denies: Hx Pacemaker/ICD Respiratory History: Reports: Hx Chronic Obstructive Pulmonary Disease (COPD), Hx Sleep Apnea, Other Respiratory Problems/Disorders - occasional SOB after quitting smoking June 2017 Denies: Hx Asthma GI History: Reports: Hx Gastroesophageal Reflux Disease - ON MEDICATION FOR, Hx Ulcer - GERD, Other GI Disorders - DIVERTICILITOSIS History: Reports: Other Problems/Disorders - microscopic hematuria-SAW UROLOGIST 6-8 MONTHS AGO Denies: Hx Renal Disease Musculoskeletal History: Reports: Hx Arthritis - SHOULDERS, KNEES, HANDS, Hx Back Problems, Other Musculoskeletal History - knee surgery February 2018 (meniscus ) Sensory History: Reports: Hx Contacts or Glasses - GLASSES Denies: Hx Hearing Aid Opthamlomology History: Reports: Hx Contacts or Glasses - GLASSES Neurological History: Reports: Hx Headaches, Hx Migraine - HX OF- ROUTINE MEDICATION FOR Comment Only: Other Neuro Impairments/Disorders - PAIN CLINIC PT. Psychiatric History: Reports: Hx Anxiety - NO MEDICATION FOR, Hx Depression - NO MEDICATION FOR Denies: Hx Panic Disorder - Surgical History Surgery Procedure, Year, and Place: bilat fem-pop Bypass 2012 and 2014; 1.5 ONLY, PROPATEN GRAFT LEFT LEG. B/L rotator cuff surgery;. Left inguinal Hernia surgery 1986. EYES - FOR CROSSED EYED. TONSILECTOMY-. GALLBLADDER SURGERY 01/18/16 Hx Anesthesia Reactions: Yes - SODIUM PENITHOL-N/V Infectious Disease History: No Infectious Disease History: Denies: Hx Clostridium Difficile, Hx Hepatitis, Hx Human Immunodeficiency Virus (HIV), Hx of Known/Suspected MRSA, Hx Shingles, Hx Tuberculosis, Hx Known/ Suspected VRE, Hx Known/Suspected VRSA, History Other Infectious Disease, Traveled Outside the [place] in Last 30 Days - Family History Known Family History: Positive: Hypertension - Social History Alcohol Use: Weekly Alcohol Amount: 7 drinks per week Substance Use Type: Reports: None Smoking Status (MU): Former Smoker Amount Used/How Often: 1 ppd or more X 40 YEARS Length of Time of Smoking/Using Tobacco: since age 17 Have You Smoked in the Last Year: Yes Review of Systems Constitutional: Negative Eyes: Negative ENT: Negative Cardiovascular: Negative Respiratory: Negative Positive: Vomiting, Diarrhea, Nausea Genitourinary: Negative Musculoskeletal: Negative Skin: Negative Neurological: Negative Psychological: Normal All Other Systems Reviewed And Are Negative: Yes Physical Exam - Summary Physical Exam Summary: neuro exam nml. Exam of ambulation limited by patients persistent vomiting and patient not wanting to trigger further vomiting with movement Triage Information Reviewed: Yes Vital Signs On Initial Exam: Initial Vitals Temp Pulse Resp BP Pulse Ox 97 F 60 22 188/93 99 10/01/19 21:21 10/01/19 21:21 10/01/19 21:21 10/01/19 21:21 10/01/19 21:21 Vital Signs Reviewed: Yes Appearance: Positive: Well-Appearing Skin: Positive: Warm Head/Face: Positive: Normal Head/Face Inspection Eyes: Positive: Normal ENT: Positive: Normal ENT inspection Neck: Positive: Supple Respiratory/Lung Sounds: Positive: Clear to Auscultation Cardiovascular: Positive: Normal Abdomen Description: Positive: Nontender Musculoskeletal: Positive: Normal Neurological: Positive: Normal Psychiatric: Positive: Normal AVPU Assessment: Alert - [place] Coma Scale Best Eye Response: 4 - Spontaneous Best Motor Response: 6 - Obeys Commands Best Verbal Response: 5 - Oriented Coma Scale Total: 15 Procedures - Sedation Patient Received Moderate/Deep Sedation with Procedure: No Diagnostics - Vital Signs Vital Signs Temp Pulse Resp BP Pulse Ox 10/01/19 21:21 97 F 60 22 188/93 99 - Laboratory Result Diagrams: 10/01/19 21:46 10/01/19 21:46 Lab Statement: Any lab studies that have been ordered have been reviewed, and results considered in the medical decision making process. Naus/Vom/Diarrhea Course/Dx - Course Course Of Treatment: Patient complains of intermittent nausea and cough 3 days since flying back from [place] with new onset vomiting and diarrhea and lightheadedness/dizziness starting today after eating pizza at 8 PM tonight. Defines dizziness as "feeling like I'm going to pass out". Denies room spinning , speech change, favce droop, new unilateral weakness, vision change, fever, sore throat, COLE, CP, SOB, abdominal pain, change in urine. Medical history is COPD, HTN, DM, HDL, CAD, CVA. Patient states she has not been eating much over the past couple days, also states he has not been compliant with hypertension medications over the past 2 days due to nausea. Patient also states his baseline heart rate is between 40 and 60. Denies EtOH or recreational drug use. Patient is on Plavix. 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 Denies prior history of dizziness. Per , unsteady gait at baseline. Moderately elevated BP. Vital signs otherwise within normal limits. pH 7.5. Glucose 208. Labs otherwise unremarkable. EKG sinus rhythm, rate of 60, normal P axis. Patient vomiting not controlled with Zofran 8 mg, Reglan 10 IV. Vomiting finally controlled with Ativan 1 mg IV until patient moves. Patient complains of room spinning and lightheadedness when he moves. Dizziness symptoms are only with movement. Unable to control vomiting when moving. CT brain negative for acute process. Patient admitted to hospitalist for inability to control vomiting and dizziness. Possible gastroenteritis (nausea and diarrhea after eating) vs stroke vs peripheral vertigo. - Differential Dx/Diagnosis Provider Diagnosis: Nausea vomiting and diarrhea, Dizziness Condition At Discharge: Stable Discharge ED - Sign-Out/Discharge Documenting (check all that apply): Patient Departure - Discharge Plan Condition: Stable Disposition: ADMITTED TO [facility] - Billing Disposition and Condition Condition: STABLE Disposition: Admitted to [facility]
--- OUTSIDE RECORDS SUMMARY | 2019-10-01 21:32 | XMS REPORT | Continuity of Care Document ---
:1960 External Reference #:[id number] Author Name Loli Verduzco NP (transmitted by agent of provider Carolyn Medley) Address [address] [place] [address] Care Team Providers Name Role Phone Bernice Ahmadi RPA-C - Physician Care Team Information Cabinet Builder Steward/Stewardess Dining Room Problems Description No Information Available Social History Type Date Description Comments Sex Unknown Tobacco Use Start: Unknown End: Former Cigarette Smoker Unknown ETOH Use Daily Use Of Alcohol Recreational Drug Use Used Recreational Drugs In The Past Allergies, Adverse Reactions, Alerts Active Allergies Reaction Severity Comments Date Penicillin Urticaria 06/05/2015 Bee Sting Urticaria 06/05/2015 Adhesives 08/22/2019 Medications Active Medications SIG Qnty Indications Ordering Provider Date Plavix 1 by mouth every Unknown 75mg Tablets day Zestril Unknown 5mg Tablets Nadolol Unknown 20mg Tablets Prilosec Unknown 20mg Capsules DR Brown Unknown 40mg Tablets Cymbalta 1 by mouth every Unknown 60mg Caps DR Marie day Lisinopril 1 by mouth every Unknown 40mg Tablets day Immunizations Description No Information Available Vital Signs Date Vital Result Comment 08/22/2019 1:38pm Weight 210.00 lb Height 68.5 inches 5'8.50" BMI (Body Mass Index) 31.5 kg/m2 BP Systolic 133 mmHg BP Diastolic 77 mmHg Heart Rate 52 /min O2 % BldC Oximetry 96 % Body Temperature 97.4 F Pain Level 0 10/23/2015 2:45pm Weight 204.00 lb Height 69 inches 5'9" BMI (Body Mass Index) 30.1 kg/m2 BP Systolic 142 mmHg BP Diastolic 78 mmHg Heart Rate 86 /min O2 % BldC Oximetry 94 % Body Temperature 99.[address] Score 11 Results Description No Information Available Procedures Description No Information Available Medical Devices Description No Information Available Encounters Description No Information Available Assessments Description No Information Available Plan of Treatment No Information Available Functional Status Description No Information Available Mental Status Description No Information Available Referrals Description No Information Available
--- OUTSIDE RECORDS SUMMARY | 2019-10-01 21:32 | XMS REPORT | Continuity of Care Document ---
:1960 External Reference #:[id number] Author Name Michelle Figueroa, [facility] Address [address] [place] [address] Care Team Providers Name Role Phone Bernice Ahmadi RPAC - Medical Care Team Information Training And Development Assistant [phone] [place] ANTHONY MD - Neurology Care Team Information Training And Development Assistant [phone] Jackson Burgos MD Care Team Information Training And Development Assistant [phone] [facility], PT/OT/LEARNING ADMINISTRATOR/[address] Care Team Information Training And Development Assistant [phone] Problems Active Problems Provider Date Peripheral vascular disease Kaley Monterroso, GRABIEL, KILN HAND Onset: 2011 Note: lower ext, mesenteric a. Benign essential hypertension Kaley Monterroso, GRABIEL, KILN HAND Onset: 2011 Pure hypercholesterolemia Kaley Monterroso, GRABIEL, KILN HAND Onset: 11/10/2012 Carotid artery occlusion Kaley Monterroso, GRABIEL, KILN HAND Onset: 11/10/2012 Note: right Coronary arteriosclerosis Allan Moise M.D., [facility] Onset: 12/15/2012 Note: cath 2013 Cerebrovascular disease Onset: 01/21/2011 Note: CVA ~2003 Obstructive sleep ap[facility] Onset: 06/24/2016 Note: Bipap Degenerative joint disease involving Berncie Ahmadi [facility] Onset: 2015 multiple joints Note: entire spine, hips Diverticulitis Bernice Ahmadi [facility] Onset: 10/22/2016 Note: admission 06/2016 Alcoholism [facility]hmadi [facility] Onset: 04/22/2017 Note: quit 02/2017 Compression fracture Bernice Ahmadi [facility] Onset: 04/22/2017 Note: T8 Gastroesophageal reflux disease Bernice Ahmadi [facility] Onset: 04/22/2017 Microscopic hematuria Bernice Ahmadi [facility] Onset: 06/03/2017 Chronic obstructive lung disease Bernice Ahmadi [facility] Onset: 11/16/2017 Note: Advanced on LDCT Type 2 diabetes mellitus Bernice Ahmadi [facility] Onset: 03/02/2018 Note: 2018 Thoracic and lumbosacral neuritis Bernice Ahmadi [facility] Onset: 04/25/2018 Restless legs Bernice Ahmadi [facility] Onset: 04/25/2018 Arthralgia of the pelvic region and thigh Bernice Ahmadi [facility] Onset: 12/2017 Social History Type Date Description Comments Sex Unknown Tobacco Use Start: Unknown End: Quit Unknown Smoking Status Reviewed: 03/16/19 Quit ETOH Use Currently consumes alcohol socially Tobacco Use Start: Unknown End: Patient is a former smoker Quit 06/2017 Unknown Recreational Drug Use Marijuana at night Allergies, Adverse Reactions, Alerts Active Allergies Reaction Severity Comments Date Penicillin RASH 05/12/2012 Tape contact allergy 09/15/2016 Varenicline Tartrate Suicidal ideation 04/22/2017 Adhesives contact dermatitis 04/22/2017 Mirapex Nausea and Vomiting 06/16/2018 Medications Active Medications SIG Qnty Indications Ordering Date Provider Ropinirole HCL take 1- 2 tablets 180tabs G25.81 Porfirio Marroquin, 06/16/2018 0.5mg by mouth at M.D. Tablets bedtime Glimepiride Take One Tablet By 90tabs Porfirio Marroquin, 03/04/2018 1mg Mouth Every Day M.D. Tablets Proair HFA 1-2 inhalations 8.500gm Porfirio Marroquin, 02/22/2018 every 4 hours as M.D. 108(90Base) mcg/Act needed Aerosol Albuterol Sulfate one unit dose via 90ml J44.0 Porfirio Marroquin, 02/22/2018 nebulizer every 4 M.D. (2.5mg/3ML) 0.083% hours as needed Nebulizer Dulera 1-2 puffs twice a 13gm J44.9 Porfirio Marroquin, 01/27/2018 200-5mcg/Act day M.D. Aerosol Losartan Potassium Take One Tablet By 90tabs Porfirio Marroquin, 01/27/2018 Mouth Every Day M.D. 50mg Tablets Nucynta 1 tab every 6 hrs Gissell Garcia 01/03/2018 50mg Tablets as needed. Clopidogrel Take One Tablet By 90tabs Porfirio Marroquin, 11/29/2017 Bisulfate Mouth Every Day M.D. 75mg Tablets Rosuvastatin Calcium Take One Tablet By 90tabs Porfirio Marroquin, 06/03/2017 Mouth Every Day M.D. 40mg Tablets Omeprazole take one capsule 90caps Porfirio Marroquin, 01/05/2017 20mg by mouth every day M.D. Capsules DR Probiotic 1 qd Porfirio Marroquin, 12/07/2016 Acidophilus M.D. Capsules Truetest Test use one-four times 100units Porfirio Marroquin, 12/07/2016 Strips a day prn M.D. Nadolol take 1/2 tablet by 45tabs Porfirio Marroquin, 03/05/2016 40mg Tablets mouth every day M.D. Pregabalin Take One Capsule Unknown 150mg By Mouth Twice A Capsules Day Maximum Daily Dose 2 Dicyclomine HCL Take One Capsule Unknown 10mg By Mouth Four Capsules Times A Day as Needed For Abdomninal Dysfunction. Bupropion Take One Tablet By Unknown Hydrochloride ER Mouth Every Day (XL) 150mg Tablets ER 24HR Medications Administered in Office Medication SIG Qnty Indications Ordering Provider Date Depomedrol 40mg/1cc Michelle Figueroa, 08/21/2019 (methylprednisolone acetate) [facility] Injection Depomedrol 40mg/1cc Michelle Figueroa, 08/21/2019 (methylprednisolone acetate) RPAC Injection Depomedrol 40mg/1cc Michelle Figueroa, 05/22/2019 (methylprednisolone acetate) RPA Injection Methylprednisolone acetate Ofelia Sauceda MD 01/12/2019 (Depomedrol) 80mg injection Injection Methylprednisolone acetate Ofelia Sauceda MD 10/13/2018 (Depomedrol) 80mg injection Injection Immunizations CPT Code Status Date Vaccine Reaction Lot # [id number] Given 09/07/2017 Influenza Virus Vaccine Quadrivalent Iiv4 none [id number] [id number] Given 09/14/1995 Influenza Virus Vaccine 23315 Given 09/30/1994 Influenza Virus Vaccine Vital Signs Date Vital Result Comment 08/21/2019 10:57am BP Systolic 134 mmHg BP Diastolic 77 mmHg Body Temperature 96.0 F Heart Rate 49 /min Height 68.5 inches 5'8.50" Weight 211.00 lb BMI (Body Mass Index) 31.6 kg/m2 BSA (Body Surface Area) 2.10 m2 Sawyer body weight in kilograms 71 kg O2 % BldC Oximetry 98 % 05/22/2019 10:48am BP Systolic 160 mmHg BP Diastolic 90 mmHg Body Temperature 98.6 F Heart Rate 56 /min Height 68 inches 5'8" Weight 215.00 lb BMI (Body Mass Index) 32.7 kg/m2 BSA (Body Surface Area) 2.11 m2 Sawyer body weight in kilograms 70 kg O2 % BldC Oximetry 95 % Results Description No Information Available Procedures Date Code Description Status 08/21/201908318 Asp./Injection major joint Completed 05/22/201965692 Asp./Injection major joint Completed 10/18/2015 36881459 Colonoscopy Completed Medical Devices Description No Information Available Encounters Description No Information Available Assessments Date Code Description Provider 08/21/2019 M17.11 Unilateral primary osteoarthritis, right Michelle Figueroa RPAC knee 08/21/2019 M25.561 Pain in right knee Michelle Figueroa RPAC 05/22/2019 M25.561 Pain in right knee Michelle Figueroa RPAC 05/22/2019 M17.11 Unilateral primary osteoarthritis, right Michelle Figueroa RPAC knee Plan of Treatment Future Appointment(s):11/21/2019 10:30 am - Michelle Figueroa RPAC at Orthopaedic Office Functional Status Functional Condition Comment Date Status Glasses Active c pap Active Mental Status Description No Information Available Referrals Description No Information Available
--- OUTSIDE RECORDS SUMMARY | 2019-10-01 21:32 | XMS REPORT | Continuity of Care Document ---
:1960 External Reference #:[id number] Author Name Loli Verduzco NP Address [address] [place] [address] Care Team Providers Name Role Phone Bernice Ahmadi RPA-C - Physician Care Team Information [employer] [place] Problems Active Problems Provider Date Obstructive sleep apnea syndrome Loli Verduzco NP Onset: 08/22/2019 Impacted cerumen Loli Verduzco NP Onset: 08/22/2019 Social History Type Date Description Comments Sex Unknown Tobacco Use Start: Unknown End: Unknown Former Cigarette Smoker ETOH Use Daily Use Of Alcohol Recreational Drug Use Current Drug User Allergies, Adverse Reactions, Alerts Active Allergies Reaction Severity Comments Date Penicillin Urticaria 06/05/2015 Bee Sting Urticaria 06/05/2015 Adhesives 08/22/2019 Medications Active Medications SIG Qnty Indications Ordering Provider Date Plavix 1 by mouth every Unknown 75mg Tablets day Nadolol Unknown 20mg Tablets Prilosec Unknown 20mg Capsules DR Brown Unknown 40mg Tablets Bupropion HCL ER (XL) 1 by mouth every Unknown day 150mg Tablets ER 24HR Proair HFA 2puffs four times Unknown 108(90Base) a day as needed mcg/Act Aerosol for sob Ropinirole HCL take 0.5 mg by Unknown 0.5mg mouth 1-2 hours Tablets before sleep Dulera inhale two puffs Unknown 200-5mcg/Act by mouth twice a Aerosol day Losartan Potassium 1 by mouth every Unknown 50mg day Tablets Dicyclomine HCL Unknown 10mg Capsules Glimepiride 1 tab by mouth Unknown 1mg Tablets every pm Lyrica Unknown 150mg Capsules Nucynta Unknown 100mg Tablets Probiotic Acidophilus 1 every day Unknown Capsules Albuterol Sulfate Unknown (2.5mg/3ML) 0.083% Nebulizer Immunizations Description No Information Available Vital Signs Date Vital Result Comment 08/22/2019 1:38pm Weight 210.00 lb Height 68.5 inches 5'8.50" BMI (Body Mass Index) 31.5 kg/m2 BP Systolic 133 mmHg BP Diastolic 77 mmHg Heart Rate 52 /min O2 % BldC Oximetry 96 % Body Temperature 97.4 F Ringsted Score 11 Pain Level 0 10/23/2015 2:45pm Weight 204.00 lb Height 69 inches 5'9" BMI (Body Mass Index) 30.1 kg/m2 BP Systolic 142 mmHg BP Diastolic 78 mmHg Heart Rate 86 /min O2 % BldC Oximetry 94 % Body Temperature 99.6 F Ringsted Score 11 Results Description No Information Available Procedures Description No Information Available Medical Devices Description No Information Available Encounters Type Date Location Provider Dx Diagnosis Office Visit 08/22/2019 Main Office Loli Verduzco, G47.33 Obstructive sleep 1:45p [employer] apnea (adult) (pediatric) Assessments Date Code Description Provider 08/22/2019 G47.33 Obstructive sleep apnea (adult) (pediatric) Loli Verduzco NP Plan of Treatment No Information Available Functional Status Description No Information Available Mental Status Description No Information Available Referrals Description No Information Available
[2019-10-01 21:57] LABS: ABS Basophils 0.1 10^3/ul (0-0.2); ABS Eosinophils 0.1 10^3/ul (0-0.6); ABS Lymphocytes 2.9 10^3/ul (1.0-4.8); ABS Monocytes 0.9 10^3/ul (0-0.8); ABS Neutrophils 5.5 10^3/ul (1.5-7.7); Eosinophil % 0.7 %; Hematocrit 45 % (42-52); Hemoglobin 15.3 g/dL (14.0-18.0); Mean Corpuscular HGB Conc 34 g/dL (31-36); Mean Corpuscular Hemoglobin 33 pg (27-31); Mean Corpuscular Volume 95 fL (80-94); Mean Platelet Volume 8.9 fL (7.4-10.4); Platelet Count 215 10^3/uL (150-450); Red Blood Count 4.72 10^6 /uL (4.18-5.48); Red Cell Distribution Width 13 % (10-15); White Blood Count 9.5 10^3/uL (3.5-10.8)
[2019-10-01 22:11] LABS: ALT 32 U/L (7-52); AST 31 U/L (13-39); Albumin 4.6 g/dL (3.2-5.2); Albumin/Globulin Ratio 1.4 (1-3); Alkaline Phosphatase 64 U/L (34-104); Anion Gap 18 mmol/L (2-11); BUN/Creatinine Ratio 16.8 (8-20); Blood Urea Nitrogen 16 mg/dL (6-24); CO2 Carbon Dioxide 19 mmol/L (22-32); Calcium 10.3 mg/dL (8.6-10.3); Chloride 105 mmol/L (101-111); EGFR African American 97.5 (>60); EGFR Non-African American 80.6 (>60); Globulin 3.2 g/dL (2-4); Glucose 208 mg/dL (70-100); Potassium 3.5 mmol/L (3.5-5.0); Sodium 142 mmol/L (135-145); Total Protein 7.8 g/dL (6.4-8.9)
[2019-10-01] MEDS ORDERED: Metoclopramide IV* 5 MG/ML 2 ML VIAL IV ONE (22:19)
[2019-10-01] MEDS ORDERED: Lorazepam PYXIS KEY PRN (22:44)
[2019-10-01] MEDS ORDERED: LORazepam INJ* 2 MG/ML 1 ML VIAL IV ONE (22:44)
[2019-10-01 22:45] LABS: Alcohol < 10 mg/dL (<10)
[2019-10-01] MEDS ORDERED: Lorazepam PYXIS KEY ONE (22:50)
[2019-10-01] MEDS ORDERED: Iodixanol* (CONTRAST) 320 MG/ML 100 ML SDV IV ONE (22:56)
[2019-10-02] MEDS ORDERED: Iodixanol* (CONTRAST) 320 MG/ML 100 ML SDV IV ONE (02:42)
[2019-10-02] MEDS: Ondansetron INJ* 2 MG/ML VIAL IV PRN ×2 (03:11→16:30)
[2019-10-02] MEDS: NS 0.9% 1000 ML** 1,000 ML IV SCH ×2 (05:06→15:09)
[2019-10-02] MEDS ORDERED: hydrALAZINE IV* 20 MG/ML VIAL IV SLOW PU ONE (05:28)
[2019-10-02] MEDS ORDERED: Lorazepam PYXIS KEY PRN (05:54)
[2019-10-02] MEDS ORDERED: LORazepam INJ* 2 MG/ML 1 ML VIAL IV PUSH PRN (05:54)
--- NOTE | 2019-10-02 06:01 | HP ---
History of Present Illness - History of Present Illness Reason for Visit: intractable vomiting History of Present Illness: 59 yo M with history of stroke, HLD, GERD, HTN came to the hospital with intractable vomiting. Started about 1 hour after eating dinner ( pizza) with his family. Noone else is sick in the family. Came to the ER, vitals are stable. He has been given at least 3 different types of antiemetics. His noted that his vomiting seem to be positional. If he turns around, seems to provoke yet another episode. Pt is complaining of both dizziness and vertigo. He has unsteady gait at baseline from his previous stroke, but per , his gait is definitely worse tonight. Physical exam limited because pt is afraid to make any weird movement to not precipitate more vomiting. - Past Medical History Cardiac: HTN, Hyperlipidemia ENERGY PROJECTS LEAD: CVA Review of Systems - Measurements Intake and Output: Intake and Output Last 24 Hours 09/29/19 09/30/19 10/01/19 10/02/19 06:59 06:59 06:59 06:59 Intake Total 1999 Balance 1999 Weight 209 lb Intake: IV Fluids 1999 - Review of Systems Constitutional Symptoms: Negative: Weight Gain, Weight Loss, Weakness, Fatigue, Fever, Night Sweats, Unexplained Falls, Other Dermatology: Negative: Normal, Rash, Skin Lesions, Cancer, Skin Lumps, Other HEENT: Positive: Vertigo Eyes: Negative: Normal, Change in Vision, Double Vision, Eye Pain, Glaucoma, Cataract, Contacts or Glasses, Other Thyroid: Negative: Normal, Goiter, Thyroid Nodule, Cold Intolerance, Heat Intolerance , Sweatiness, Tremor, Frequent Defecation, Constipation, Palpitations, Primary Hypothyroidism, Primary Hyperthyroidism, Weight Loss, Weight Gain, Change in Skin/Hair, Change in Menstruation, Radiation Exposure, Other Pulmonary: Negative: Normal, Cough, Sputum, Hemoptysis, Wheezing, Respiratory Distress, Shortness of Breath, COPD, Asthma, Exercise Intolerance, Home Oxygen, Other Cardiology: Negative: Normal, Chest Pain, Shortness of Breath, Palpitations, Swelling of Ankles, Peripheral Vascular Dis, Edema, Faintness, Syncope, Claudication, Proximal NocturnalDyspnea, Orthopnoea, Other Gastroenterology: Positive: Nausea, Vomiting Musculoskeletal: Positive: Low Back Pain Endocrinology: Negative: Normal, Thyroid Problems, Adrenal Problems, Gonadal Problems, Family Hx Endocrine Disorders, Obesity, Diabetes Mellitus, Hyperglycemia, Hx Hypoglycemia, Diabetic Foot Ulcers, Calluses, Hirsutism, Menstrual Abnormalities , Polydipsia, Polyuria, Gonadal Problems, Gynecomastia, Pituitary disease, Other Hematologic/Lymphatic: Negative: Anemia, Easy Bruising, Hx Leukemia, Hx Lymphoma, Use of Anticoagulant, Use of Antiplatelet Drugs, Other Neurology: Positive: Dizziness, Change in Balancing Objective Active Medications: Sodium Chloride (Ns 0.9% 1000 Ml) 1,000 mls @ 100 mls/hr IV PER RATE ANGIE Last Admin: 10/02/19 05:06 Dose: 100 mls/hr Lorazepam (Ativan Inj*) 1 mg IV PUSH Q8H PRN PRN Reason: ANXIETY Miscellaneous (Ativan Pyxis Ruffin) 1 ea N/A .ATIVAN IV RUFFIN PRN PRN Reason: PYXIS RUFFIN Ondansetron HCl (Zofran Inj*) 4 mg IV Q4H PRN PRN Reason: NAUSEA/VOMITING Last Admin: 10/02/19 03:11 Dose: 4 mg Prochlorperazine Edisylate (Compazine Inj*) 10 mg IV Q6H PRN PRN Reason: NAUSEA/VOMITING Vital Signs - 8 hr 10/01/19 10/01/19 10/01/19 22:00 22:01 22:31 Temperature Pulse Rate 55 59 69 Respiratory 34 33 32 Rate Blood Pressure 182/55 167/65 (mmHg) O2 Sat by Pulse 98 98 97 Oximetry 10/01/19 10/01/19 10/01/19 22:53 23:00 23:40 Temperature Pulse Rate 76 73 Respiratory 12 26 15 Rate Blood Pressure 170/84 177/94 (mmHg) O2 Sat by Pulse 92 96 Oximetry 10/01/19 10/02/19 10/02/19 23:42 00:00 00:01 Temperature Pulse Rate 70 68 69 Respiratory 13 11 8 Rate Blood Pressure 159/82 (mmHg) O2 Sat by Pulse 96 96 96 Oximetry 10/02/19 10/02/19 10/02/19 00:31 01:00 01:31 Temperature Pulse Rate 65 69 76 Respiratory 5 0 15 Rate Blood Pressure 157/91 169/98 166/109 (mmHg) O2 Sat by Pulse 97 97 97 Oximetry 10/02/19 10/02/19 10/02/19 02:00 02:30 03:32 Temperature Pulse Rate 78 74 Respiratory Rate Blood Pressure 170/90 (mmHg) O2 Sat by Pulse 91 95 Oximetry 10/02/19 10/02/19 10/02/19 03:39 04:00 04:30 Temperature Pulse Rate 78 65 84 Respiratory 21 16 22 Rate Blood Pressure 162/79 152/73 159/91 (mmHg) O2 Sat by Pulse 89 96 97 Oximetry 10/02/19 04:50 Temperature 97.8 F Pulse Rate 70 Respiratory 20 Rate Blood Pressure 159/91 (mmHg) O2 Sat by Pulse 97 Oximetry Oxygen Devices in Use Now: None Appearance: very uncomfortable. Sleeping, not wanting to participate in exam. said he is just anxious about vomiting Eyes: - - not observed, pt not participating Respiratory: Symmetrical Chest Expansion and Respiratory Effort, Clear to Auscultation Cardiovascular: NL Sounds; No Murmurs; No JVD Abdominal: NL Sounds; No Tenderness; No Distention Lymphatic: No Cervical Adenopathy Extremities: No Edema Skin: No Rash or Ulcers Neurological: Alert and Oriented x 3, - - Neuro exam not completed from lack of participation Result Diagrams: 10/01/19 21:46 10/01/19 21:46 Assess/Plan/Problems-Billing Assessment: - Patient Problems (1) Intractable vomiting with nausea Current Visit: Yes Status: Acute Code(s): R11.2 - NAUSEA WITH VOMITING, UNSPECIFIED SNOMED Code(s): 667971073 Comment: i dont think this is related to food. Ct abdomen did not show any pathology the vertigo, vomiting and gait imbalance points to maybe vestibular neuritis? I ordered a CTA to rule out stroke, especially since i could not do a proper exam. supportive care (2) HTN (hypertension) Current Visit: Yes Status: Acute Code(s): I10 - ESSENTIAL (PRIMARY) HYPERTENSION SNOMED Code(s): 06816205 Comment: hydrlazine prn (3) History of stroke Current Visit: Yes Status: Acute Code(s): Z86.73 - PRSNL HX OF TIA (TIA), AND CEREB INFRC W/O RESID DEFICITS SNOMED Code(s): 006952479 Comment: R parietal lobe infarct with residual mild weakness (4) HLD (hyperlipidemia) Current Visit: Yes Status: Acute Code(s): E78.5 - HYPERLIPIDEMIA, UNSPECIFIED SNOMED Code(s): 65545692 (5) GERD (gastroesophageal reflux disease) Current Visit: Yes Status: Acute Code(s): K21.9 - GASTRO-ESOPHAGEAL REFLUX DISEASE WITHOUT ESOPHAGITIS SNOMED Code(s): 281672063 Comment: protonix IV (6) DVT prophylaxis Current Visit: Yes Status: Acute Code(s): Z29.9 - ENCOUNTER FOR PROPHYLACTIC MEASURES, UNSPECIFIED SNOMED Code(s): 209457588 Comment: heparin scc (7) Full code status Current Visit: Yes Status: Acute Code(s): Z78.9 - OTHER SPECIFIED HEALTH STATUS SNOMED Code(s): 921083435
[2019-10-02 08:34] LABS: Urine Appearance Clear; Urine Color Yellow
[2019-10-02 08:35] LABS: Urine Bilirubin Negative (Negative); Urine Blood Negative (Negative); Urine Glucose Negative (Negative); Urine Ketones 2+ (Negative); Urine Nitrite Negative (Negative); Urine Protein 1+(30 mg/dL) (Negative); Urine Specific Gravity 1.015 (1.010-1.030); Urine Urobilinogen Negative (Negative)
[2019-10-02 08:38] LABS: Urine Benzodiazepine Screen None Detected (None Detect); Urine Opiates Screen None Detected (None Detect)
[2019-10-02 08:42] LABS: Urine Bacteria Absent (Absent); Urine Red Blood Cell 1+(3-5/hpf) (Absent); Urine White Blood Cell Trace(0-5/hpf) (Absent)
[2019-10-02] MEDS: PROCHLORPERAZINE INJ 5 MG/ML 2 ML VIAL IV PRN ×2 (09:11→15:49)
[2019-10-02] MEDS ORDERED: LORazepam INJ* 2 MG/ML 1 ML VIAL IV PUSH SCH (10:00)
[2019-10-02 10:02] LABS: Folate 18.88 ng/mL (>3.99)
--- NOTE | 2019-10-02 14:19 | PN ---
Subjective Date of Service: 10/02/19 Interval History: Patient is still having on and off nausea and vomiting since admission. He stated he had worsening ataxia, he used to be able to walk without problems since stroke 15 years ago. He denied vision disturbance, denied dyarthria, complaining of generalized weakness and mild headache Objective Active Medications: Sodium Chloride (Ns 0.9% 1000 Ml) 1,000 mls @ 100 mls/hr IV PER RATE [facility] Last Admin: 10/02/19 05:06 Dose: 100 mls/hr Lorazepam (Ativan Inj*) 0 - 3 mg IV PUSH .PER [facility] PROTOCOL [facility]; Protocol Last Admin: 10/02/19 09:53 Dose: 2 mg Miscellaneous (Ativan Pyxis Gomez) 1 ea N/A .ATIVAN IV GOMEZ PRN PRN Reason: PYXIS GOMEZ Ondansetron HCl (Zofran Inj*) 4 mg IV Q4H PRN PRN Reason: NAUSEA/VOMITING Last Admin: 10/02/19 03:11 Dose: 4 mg Prochlorperazine Edisylate (Compazine Inj*) 10 mg IV Q6H PRN PRN Reason: NAUSEA/VOMITING Last Admin: 10/02/19 09:11 Dose: 10 mg Vital Signs - 8 hr 10/02/19 10/02/19 10/02/19 06:12 07:15 09:53 Temperature 97.8 F 98.3 F Pulse Rate 70 69 Respiratory 18 18 18 Rate Blood Pressure 185/81 163/84 (mmHg) O2 Sat by Pulse 93 95 Oximetry 10/02/19 10/02/19 10/02/19 10:00 11:15 11:56 Temperature 98.3 F 98.6 F Pulse Rate 69 82 Respiratory 18 18 18 Rate Blood Pressure 163/84 137/57 (mmHg) O2 Sat by Pulse 95 97 Oximetry Oxygen Devices in Use Now: None Exam: Appearance: very uncomfortable. nauseous when changing position, bilateral hands tremulous Eyes: Decreased right eye adduction, but no double vision on all directions Respiratory: Symmetrical Chest Expansion and Respiratory Effort, Clear to Auscultation Cardiovascular: NL Sounds; No Murmurs; No JVD Abdominal: NL Sounds; No Tenderness; No Distention Lymphatic: No Cervical Adenopathy Extremities: No Edema Skin: No Rash or Ulcers Neurological: Alert and Oriented x 3 Neurological examination not complete due to severe nausea and vomiting Cranial nerve intact Muscle strength 4 over left leg, 5 over all other limbs Finger to nose Dysmetria on left side, ordaz to knee test left side dysmetria Result Diagrams: 10/01/19 21:46 10/01/19 21:46 Assess/Plan/Problems-Billing Assessment: 59 y/o male with history of right parietal lobe infarct, right internal carotid artery occlusion with distal reconstitution, presented with intractable vomiting , concerning of acute stroke vs peripheral vertigo. - Patient Problems (1) Intractable vomiting with nausea Current Visit: Yes Status: Acute Code(s): R11.2 - NAUSEA WITH VOMITING, UNSPECIFIED SNOMED Code(s): 882293638 Comment: Need to rule out CVA in view of intractable vomiting and worsening dysmetria(not sure about baseline) on physical examination, peripheral vertigo such as BPPV, vestibular neuritis could be possible if CVA was ruled out. Ct abdomen did not show any pathology will do MRI today Neurology consult today restart plavix when patient is able to take meds orally (2) HLD (hyperlipidemia) Current Visit: Yes Status: Acute Code(s): E78.5 - HYPERLIPIDEMIA, UNSPECIFIED SNOMED Code(s): 86230048 Comment: check lipids, HbA1c tomorrow (3) HTN (hypertension) Current Visit: Yes Status: Acute Code(s): I10 - ESSENTIAL (PRIMARY) HYPERTENSION SNOMED Code(s): 73921504 Comment: allow permissive hypertensive for now while awaiting MRI scan (4) History of stroke Current Visit: Yes Status: Acute Code(s): Z86.73 - PRSNL HX OF TIA (TIA), AND CEREB INFRC W/O RESID DEFICITS SNOMED Code(s): 777687168 Comment: R parietal lobe infarct with residual mild weakness on plavix 75mg (5) DVT prophylaxis Current Visit: Yes Status: Acute Code(s): Z29.9 - ENCOUNTER FOR PROPHYLACTIC MEASURES, UNSPECIFIED SNOMED Code(s): 615099383 Comment: heparin scc (6) Full code status Current Visit: Yes Status: Acute Code(s): Z78.9 - OTHER SPECIFIED HEALTH STATUS SNOMED Code(s): 595477332 Status and Disposition: Inpatient Medicine Attestation Documenting Resident: Annamarie Alvarado Supervising Physician: Lester Wayne Attending/Supervising Physician Comment: 59 year old w/ old RT-front/parietal stroke, L-sided weakness, here with positional vomiting, ataxia. Suspect posterior circulation stroke, vs vestibular neuronitis. Eye exam notable for difficulty deviating to LT both eyes, no nystagmus. MRI brain pending, neurology to see today. Attestation: This service has been performed in part by a resident under the direction of a teaching physician.I, Lester Wayne, performed the service, or was physically present during the critical, or gomez portions of the service, furnished by the resident. I participated in the management of the patient.
[2019-10-02] MEDS ORDERED: Cyanocobalamin INJ * 1,000 MCG/ML VIAL 1 ML VIAL IM SCH (17:00)
[2019-10-02] MEDS: Clopidogrel TAB* 75 MG PO SCH (18:00)
--- NOTE | 2019-10-02 19:26 | CONS ---
CONSULTATION REPORT: DATE OF CONSULT: 10/02/19 PATIENT OF: Dr. Shabazz. HISTORY OF PRESENT ILLNESS: This is a 59-year-old right-handed man who I am asked to evaluate for vertigo and vomiting. He has a past history of stroke, hyperlipidemia, hypertension, and presented with acute onset of nausea, vomiting , and vertigo, worse with position. He staggers, but his staggering is not to one side or the other. PAST MEDICAL HISTORY: Significant for hypertension, hyperlipidemia, past history of stroke, COPD, arthritis, diverticulitis, depression, anxiety, alcohol abuse. PAST SURGICAL HISTORY: He is status post inguinal hernia bilaterally, bilateral rotator cuff repair, fem-pop bypass bilaterally, cholecystectomy, eye surgery. MEDICATIONS AT HOME: Included: 1. Cozaar 50 mg daily. 2. Nucynta 50 mg t.i.d. 3. Bentyl 10 mg daily. 4. Requip 0.5 daily. 5. Lyrica 150 q.p.m. 6. Wellbutrin 150 mg daily. 7. Rosuvastatin 40 mg at bedtime. 8. Prilosec 20 mg daily. 9. Corgard 20 mg daily. 10. Glimepiride 1 mg daily. 11. Plavix 75 mg q.p.m. 12. Albuterol 2 puffs q.6 hours. ALLERGIES: Include TEGADERM, TAPE, PENICILLIN, VARENICLINE. FAMILY HISTORY: There is a family history for diabetes, heart disease, and cancer. SOCIAL HISTORY: He lives with his spouse and he is disabled. He is a former smoker. REVIEW OF SYSTEMS: Positive that he has had a recent cold after coming back from [place] last week. PHYSICAL EXAM: Temperature 98.6, pulse 82, respirations 18, blood pressure 137/ 57. He was alert and oriented with normal speech and comprehension. Cranial nerves II through XII were intact other than he had fast beating nystagmus to the left, worse with any changes in eye movement or position of head. He has vertigo, but no tinnitus or ear discharge. Facies were symmetric. He had normal tone and strength was intact other than his left leg was 4/5 strength. Reflexes were 3 on the left knee, 2 on the right, trace ankle jerks, 1+ in both arms. Chest: Clear. Cardiovascular: Regular rate and rhythm. Abdomen was soft with positive bowel sounds. DIAGNOSTIC STUDIES/LAB DATA: His most recent CTA showed right carotid occlusion with distal reconstitution through collaterals, unremarkable basilar artery system, left internal carotid showed no significant stenosis. The right carotid findings are old. I reviewed his MRI scan, which showed his old anterior cerebral artery stroke and right occipital stroke, which was unchanged from the prior MRI scan which I also reviewed. Labs include normal CBC. Venous blood gas with pH of 7.5. CMP showed a bicarb of 19, glucose of 208, otherwise unremarkable. B12 was 237. UA with 2+ ketones , 1+ protein. His urine tox screen was presumptive positive for cannabinoids. IMPRESSION AND PLAN: Mr. Ley is at risk for further stroke given his cardiovascular risk factors; however, he has positional vertigo and no dysmetria on either side and this would be more likely to be a peripheral vertigo and his MRI scan is negative for brainstem or cerebellar stroke and so I do not think we need to change his stroke management at this point. Symptomatic relief for his peripheral vertigo is what is recommended. Thank you for sharing his case. [id number]/[facility] #: [id number] NIA
[2019-10-03] MEDS ORDERED: D5NS 0.9% 1000 ML BAG* 1,000 ML IV SCH (02:00)
[2019-10-03 06:33] LABS: INR 1.11 (0.82-1.09)
[2019-10-03 06:35] LABS: Albumin 3.9 g/dL (3.2-5.2); Albumin/Globulin Ratio 1.6 (1-3); BUN/Creatinine Ratio 15.8 (8-20); EGFR African American 126.2 (>60); EGFR Non-African American 104.3 (>60); Globulin 2.5 g/dL (2-4); HDL Cholesterol 43.8 mg/dL; Potassium 3.1 mmol/L (3.5-5.0); Total Bilirubin 0.9 mg/dL (0.2-1.0); Total Protein 6.4 g/dL (6.4-8.9)
[2019-10-03] MEDS ORDERED: Potassium Chloride* LIQUID 20 MEQ/15 ML UDC PO ONE (06:55)
[2019-10-03 06:57] LABS: TSH (Thyroid Stimulating Horm) 0.54 mcIU/mL (0.34-5.60)
[2019-10-03] MEDS ORDERED: NS 0.9% w/ 40 Meq KCL 1000 ML* 1,000 ML IV SCH (07:00)
[2019-10-03 07:22] LABS: ABS Basophils 0.1 10^3/ul (0-0.2); ABS Lymphocytes 2.2 10^3/ul (1.0-4.8); ABS Neutrophils 9.1 10^3/ul (1.5-7.7); Eosinophil % 0.1 %; Hematocrit 39 % (42-52); Hemoglobin 13.1 g/dL (14.0-18.0); Mean Corpuscular HGB Conc 34 g/dL (31-36); Mean Corpuscular Hemoglobin 33 pg (27-31); Mean Corpuscular Volume 96 fL (80-94); Red Blood Count 4.03 10^6 /uL (4.18-5.48); Red Cell Distribution Width 13 % (10-15); White Blood Count 12.4 10^3/uL (3.5-10.8)
[2019-10-03] MEDS: BuPROPion XL* 150 MG TAB.XL PO SCH (07:41)
[2019-10-03 07:56] LABS: Platelet Count Platelets clumped. 10^3/uL (150-450)
[2019-10-03] MEDS ORDERED: Acetaminophen TAB* 325 MG PO PRN (09:56)
[2019-10-03] MEDS: PROCHLORPERAZINE INJ 5 MG/ML 2 ML VIAL IV PRN (10:36)
[2019-10-03] MEDS: Ropinirole TAB* 0.5 MG TAB PO SCH (10:36)
--- NOTE | 2019-10-03 13:49 | PN ---
Subjective Date of Service: 10/03/19 Interval History: Patient felt general improvement, less frequent vomitting but still vomited once this morning after starting diet. He was able to sit up, and he noticed spinning and dizziness today, denied weakness. Objective Active Medications: Acetaminophen (Tylenol Tab*) 650 mg PO Q4H PRN PRN Reason: PAIN - MILD Last Admin: 10/03/19 10:42 Dose: 650 mg Atorvastatin Calcium (Lipitor*) 80 mg PO BEDTIME [facility] Bupropion HCl (Wellbutrin Xl *) 150 mg PO DAILY [facility] Last Admin: 10/03/19 07:41 Dose: 150 mg Clopidogrel Bisulfate (Plavix Tab*) 75 mg PO QPM [facility] Last Admin: 10/02/19 18:00 Dose: Not Given Cyanocobalamin (Vitamin B12 Inj *) 1,000 mcg IM Q7D [facility] Stop: 11/01/19 16:59 Last Admin: 10/02/19 18:00 Dose: 1,000 mcg Potassium Chloride/Sodium Chloride (Ns 0.9% W/ 40 Meq Kcl 1000 Ml*) 1,000 mls @ 75 mls/hr IV PER RATE [facility] Last Admin: 10/03/19 07:34 Dose: 75 mls/hr Lorazepam (Ativan Inj*) 0 - 3 mg IV PUSH .PER [facility] PROTOCOL [facility]; Protocol Last Admin: 10/02/19 09:53 Dose: 2 mg Meclizine HCl (Antivert Tab*) 25 mg PO Q8HR [facility] Miscellaneous (Ativan Pyxis Gomez) 1 ea N/A .ATIVAN IV GOMEZ PRN PRN Reason: PYXIS GOMEZ Nadolol (Corgard Tab*) 20 mg PO QPM [facility] Ondansetron HCl (Zofran Inj*) 4 mg IV Q4H PRN PRN Reason: NAUSEA/VOMITING Last Admin: 10/02/19 16:30 Dose: 4 mg Ropinirole HCl (Requip Tab*) 0.5 mg PO DAILY [facility] Last Admin: 10/03/19 10:36 Dose: 0.5 mg Oxygen Devices in Use Now: None Exam: Appearance: NAD, conversing comfortably Eyes: EOMI, no visual defect, no visual changes. Respiratory: Symmetrical Chest Expansion and Respiratory Effort, Clear to Auscultation Cardiovascular: NL Sounds; No Murmurs; No JVD Abdominal: NL Sounds; No Tenderness; No Distention Lymphatic: No Cervical Adenopathy Extremities: No Edema Skin: No Rash or Ulcers Neurological: Alert and Oriented x 3 Neurological examination not complete due to severe nausea and vomiting Cranial nerve intact Muscle strength 4 over left leg, 5 over all other limbs No dysmetria Result Diagrams: 10/03/19 05:59 10/03/19 05:59 Assess/Plan/Problems-Billing Assessment: 59 y/o male with history of right parietal lobe infarct, right internal carotid artery occlusion with distal reconstitution, presented with intractable vomiting , likely peripheral vertigo. - Patient Problems (1) Intractable vomiting with nausea Current Visit: Yes Status: Acute Code(s): R11.2 - NAUSEA WITH VOMITING, UNSPECIFIED SNOMED Code(s): 106359943 Comment: Peripheral vertigo such as BPPV, vestibular neuritis could be possible. CVA was ruled out based on MRI brain results. Ct abdomen did not show any pathology Vestibular rehab inpatient and outpatient appcretiate Neuroligst's input. symptomatic treatment with meclizine and zofran prn (2) HLD (hyperlipidemia) Current Visit: Yes Status: Acute Code(s): E78.5 - HYPERLIPIDEMIA, UNSPECIFIED SNOMED Code(s): 51508702 Comment: continue atorvastatin. (3) HTN (hypertension) Current Visit: Yes Status: Acute Code(s): I10 - ESSENTIAL (PRIMARY) HYPERTENSION SNOMED Code(s): 72891601 Comment: conditnue old medication for HTN (4) History of stroke Current Visit: Yes Status: Acute Code(s): Z86.73 - PRSNL HX OF TIA (TIA), AND CEREB INFRC W/O RESID DEFICITS SNOMED Code(s): 847892920 Comment: R parietal lobe infarct with residual mild weakness on plavix 75mg (5) DVT prophylaxis Current Visit: Yes Status: Acute Code(s): Z29.9 - ENCOUNTER FOR PROPHYLACTIC MEASURES, UNSPECIFIED SNOMED Code(s): 005567970 Comment: heparin scc (6) Full code status Current Visit: Yes Status: Acute Code(s): Z78.9 - OTHER SPECIFIED HEALTH STATUS SNOMED Code(s): 812741247 (7) Vitamin B12 deficiency Current Visit: Yes Status: Acute Code(s): E53.8 - DEFICIENCY OF OTHER SPECIFIED B GROUP VITAMINS SNOMED Code(s): 544998358 Comment: vitamin b12 237, borderline low start IM vitamin b12, planned for 4 weeks, then daily supplementation. could be related to some of the hopital complains Status and Disposition: Inpatient Medicine. Discharge when symptoms better continue PT/OT Attestation Documenting Resident: Annamarie Alvarado Supervising Physician: Kwadwo Wayne Attending/Supervising Physician Comment: Patient has vertigo, ataxia, likely vestibular neuronitis or other peripheral cause of vertigo. Will have vestibular PT, likely discharge tomorrow. Attestation: This service has been performed in part by a resident under the direction of a teaching physician.I, Kwadwo Wayne, performed the service, or was physically present during the critical, or gomez portions of the service, furnished by the resident. I participated in the management of the patient.
[2019-10-03] MEDS: Meclizine TAB* 12.5 MG PO SCH ×2 (14:17→22:48)
[2019-10-03] MEDS ORDERED: Nadolol TAB* 40 MG PO SCH (18:00)
[2019-10-03] MEDS: Clopidogrel TAB* 75 MG PO SCH (18:12)
[2019-10-03] MEDS ORDERED: Atorvastatin* 80 MG TAB PO SCH (21:00)
[2019-10-03] MEDS ORDERED: Losartan TAB* 25 MG PO ONE (22:37)
[2019-10-04] MEDS: Meclizine TAB* 12.5 MG PO SCH ×2 (06:34→14:59)
[2019-10-04] MEDS ORDERED: Losartan TAB* 25 MG PO SCH (09:00)
[2019-10-04] MEDS: Ropinirole TAB* 0.5 MG TAB PO SCH (09:57)
[2019-10-04] MEDS: BuPROPion XL* 150 MG TAB.XL PO SCH (09:58)
[2019-10-04 16:01] VITALS: BP 169/97
--- NOTE | 2019-10-05 09:11 | DS ---
CC: ADEOLA Segal DISCHARGE SUMMARY: DATE OF ADMISSION: 10/02/19 DATE OF DISCHARGE: 10/04/19 PRIMARY CARE: ADEOLA Segal PRIMARY DIAGNOSIS: Viral vestibular neuronitis. SECONDARY DIAGNOSES: 1. Intractable vomiting. 2. Vertigo with ataxia. 3. History of stroke with left-sided hemiplegia. 4. Hypertension. 5. Hyperlipidemia. 6. Gastroesophageal reflux disease. 7. Type 2 diabetes. MEDICATIONS ON DISCHARGE: 1. Albuterol 2 puffs inhaled q.6 hours p.r.n. wheezing. 2. Wellbutrin XL 150 mg p.o. q.a.m. 3. Clopidogrel 75 mg p.o. q.p.m. 4. Dicyclomine 10 mg p.o. daily p.r.n. cramps. 5. Glimepiride 1 mg p.o. q.a.m. 6. Lactobacillus 1 cap p.o. q.p.m. 5. Losartan 50 mg p.o. q.p.m. 6. Nadolol 20 mg p.o. q.p.m. 7. Omeprazole 20 mg p.o. q.p.m. 8. Pregabalin 150 mg p.o. q.p.m. 9. Ropinirole 0.5 mg p.o. daily. 10. Rosuvastatin 40 mg p.o. q.h.s. 11. Nucynta 50 mg p.o. t.i.d. 12. Meclizine 25 mg p.o. q.8 hours p.r.n. vertigo. HOSPITAL COURSE: A 59-year-old male with history of right-sided anterior circulation stroke and righ t anterior carotid occlusion, presented with acute vertigo and ataxia. The patient had intractable v omiting with any movement of his head. Because of the vomiting, the patient had a CT of abdomen and pelvis in the emergency department, which showed colonic diverticulosis without diverticulitis, mild fatty infiltration of the liver, history of cholecystectomy and calcifications in the pancreas sugges ting previous pancreatitis. Head CT showed some ischemic white matter changes with old right-sided c erebral infarcts. CT angiogram of the head and neck on 10/02/19 showed right internal carotid occlus ion with distal reconstitution. Otherwise, negative CTA of the head. The carotid occlusion is old. Brain MRI was obtained due to a suspicion of posterior circulation stroke causing vomiting, ataxia a nd vertigo. No posterior infarct was found. There was evidence on MRI of old infarction with the ri ght frontal and parietal lobes and occlusion of the right internal carotid artery. The patient was t reated supportively with antiemetics and meclizine. The other important studies in hospital stay, wh ite count was 9.5 on admission and 12.4 on 10/03/19. He had a mild anemia with hemoglobin of 13.1. Potassium was 3.5 on admission and 3.1 on 10/03/19. The patient has steadily improved over 2-day per iod and was able to ambulate with a walker and with minimal vertigo. He had a physical therapy asses sment and beginning of vestibular rehabilitation. The patient was stable for discharge on 10/04/19 a nd can get physical therapy at home and transition to outpatient physical therapy. DISPOSITION: Home. ACTIVITY: As tolerated, walk with walker. STATUS: Observation. DIET: Diabetic. FOLLOWUP: Should be with visiting nurse at home and the patient should see primary care within 1 day bedoya [id number]/[facility] #: [id number]
== END 2019-10-04 15:30 | disposition home or self-care (01) ==
LOC: ED 21:18 → MED 10-02 02:12
PROVIDERS: ADMIT Student in an Organized Health Care Education/Training Program; ATTEND Internal Medicine
DX: H81.20 Vestibular neuronitis, unspecified ear (principal); R27.0 Ataxia, unspecified; R11.10 Vomiting, unspecified; Z86.73 Personal history of transient ischemic attack (TIA), and cerebral infarction without residual deficits; I10 Essential (primary) hypertension; E78.5 Hyperlipidemia, unspecified; K21.9 Gastro-esophageal reflux disease without esophagitis; E11.9 Type 2 diabetes mellitus without complications; Z79.01 Long term (current) use of anticoagulants; Z79.899 Other long term (current) drug therapy; I25.10 Atherosclerotic heart disease of native coronary artery without angina pectoris; J44.9 Chronic obstructive pulmonary disease, unspecified; Z87.891 Personal history of nicotine dependence; F41.9 Anxiety disorder, unspecified
CPT/HCPCS: 36415; 70450; 70496; 70498; 70551; 74177; 80053; 80061; 80307; 80320; 81003; 81015; 82607; 82746; 82803; 83036; 83690; 84443; 85025; 85610; 86140; 87086; 93005; 96361; 96372; 96374; 96375; 96376; 99285; A9270-GY; G0378; G0480; G8978-GP-CJ; G8978-GP-CL; G8979-GP-CI; J0360; J0780; J2060; J2405; J2765; J3420; Q9967